=== PATIENT | male | born 1930 | race Caucasian/White ===

== ENCOUNTER 2016-12-06 23:14 | Inpatient (IN) | payer MEDICARE ==
[~2016-12-06] VITALS: Ht 175.3 cm; Wt 98.5 kg
[~2016-12-06 23:14] MED LIST: ALPR0.5T8 PO; AMLO10TA3 PO; ASPI81TA3 PO; ATOR10TA66 PO; CLOP75TA28 PO; GLPZ5T PO; IBUP200C PO; INSU100V7 SUBQ; LOSA100T29 PO; METF1000 PO; SIMV40TA5 PO; TAMS0.4C98 PO; ZYL100 PO
--- NOTE | 2016-12-06 23:28 | ED.REPORT ---
HPI-General Illness Date of Service Dec 06, 2016 ED Provider: Ray Monterroso MD An 85 year old male with a history of hypertension, diabetes and recent TIA is brought to the ED via EMS due to confusion. Per EMS, the pt has been confused with altered mental status for the last six to seven days. This has been accompanied by insomnia and a fever of 101.7 degrees. The pt also admits to decreased mobility over the last few days, but denies headache, nausea, vomiting , chest pain and abdominal pain. He took 30 mg of temazepam tonight, which is a new prescription. The pt was admitted to [facility] on 12/02/2016 for a stroke workup. He was diagnosed with a TIA and discharged on 12/04/2016. Nursing Notes Stated Complaint: CONFUSION/FEVER Nursing Notes Reviewed: Yes Allergies: Coded Allergies: No Known Allergies (Unverified , 12/02/16) Scheduled Allopurinol (Allopurinol) 100 Mg Tablet 100 MG PO QAM Amlodipine (Amlodipine) 10 Mg Tablet 10 MG PO QAM Aspirin Chew (Aspirin Chew) 81 Mg Chew 81 MG PO QAM Atorvastatin Calcium (Atorvastatin Calcium) 10 Mg Tablet 10 MG PO HS Clopidogrel (Clopidogrel) 75 Mg Tablet 75 MG PO DAILY Glipizide (Glipizide) 5 Mg Tablet 5 MG PO QAM Ibuprofen (Ibuprofen) 200 Mg Capsule 600 MG PO QAM Insulin Glargine (Lantus U100 Insulin Vial) 100 Unit/Ml Vial 21 UNIT SUBQ QAM Losartan Potassium (Losartan Potassium) 100 Mg Tablet 100 MG PO QAM Metformin (Glucophage) 1,000 Mg Tablet 1,000 MG PO BIDWM Simvastatin (Simvastatin) 40 Mg Tablet 40 MG PO HS Tamsulosin (Flomax) 0.4 Mg Capsule 0.4 MG PO HS Scheduled PRN Alprazolam (Alprazolam) 0.5 Mg Tablet 0.5 MG PO Q8H PRN PRN For Anxiety General Time Seen by MD: 23:27 Chief Complaint Other (Altered mental status) Hx Obtained From: Patient, EMS Arrived By: Ambulance Sudden in Onset?: No Onset Occurred: 6 days ago Symptom Duration: Since onset Recent Healthcare: Recent doctor visit, Recent hospitalization Similar Sx Previous: No Past Medical History Past Medical History Hypertension Depression Right eye cancer TIA Suspected liver cirrhosis Gout Reports: Diabetes mellitus (on insulin) Past Surgical History Right knee replacement Smoking History Unknown if Ever Smoker Social History Other Social History: Good social support, Ambulatory Status Independent Review of Systems altered mental status Full Review of Systems Constitutional: Reports: Fever Respiratory: Denies: Non-productive cough, Shortness of breath Cardiovascular: Denies: Chest pain GI: Denies: Abdominal pain, Nausea, Vomiting Musculoskeletal: Denies: Back pain, Neck pain Skin: Denies Rash Neurologic: Denies: Headache Psychiatric: Reports: Confusion, Insomnia Complete sys rev & neg: except as marked. Physical Exam Vital Signs Vital Signs Date Time Temp Pulse Resp B/P Pulse Ox O2 Delivery O2 Flow Rate FiO2 12/07/16 02:42 37.4 12/07/16 02:12 73 26 119/51 95 Nasal Cannula 2 12/06/16 23:30 38 81 26 128/41 92 Nasal Cannula 2 Initial VS: Reviewed General/Constitutional: Awake, Alert Head / Eyes: Atraumatic, Normocephalic, PERRL, EOMI ENT: Atraumatic, Airway patent Mouth: Positive: Mucous membranes dry Neck: Atraumatic, Supple, Full range of motion Respiratory / Chest: Atraumatic, Breath sounds NL, Breath sounds = bilat, No respiratory distress Cardiovascular: Heart rate NL Heart Rate / Rhythm: Positive: Irreg irregular rhythm systolic murmur, lower left sternal border Abdomen: Atraumatic, Soft, Non-tender Back: Atraumatic, Full range of motion Upper Extremities Upper Extremity / MS: Full range of motion, Neurologic intact, Vascular intact Lower Extremity / Pelvis / MS: Full range of motion, Neurologic intact, Vascular intact Skin: Warm, Dry erythema and warmth of old IV site on the right antecubital fossa wound on right first toe, appears to be healing well Neurologic: Oriented X3, Speech NL, No motor deficits, No sensory deficits Psychiatric: Affect NL, Mood NL Interpretation & Diagnostics Lab Results Interpretation Result Diagram: 12/06/16 2331 12/06/16 2331 Test 12/06/16 23:31 12/06/16 23:59 12/07/16 01:22 White Blood Count 5.2th/mm3 (3.8-10.1) Red Blood Count 3.43mil/mm3 (4.40-5.80) Hemoglobin 10.8g/dL (13.8-17.2) Hematocrit 31.0% (41.0-50.0) Mean Corpuscular Volume 90.4fL (81-100) Mean Corpuscular Hemoglobin 31.5pg (27.0-35.0) Mean Corpuscular Hemoglobin Concent 34.8% (32.0-37.0) Red Cell Distribution Width 14.9% (12.3-15.4) Platelet Count 122bil/L (150-400) Neutrophils (%) (Auto) 54.2% (40-74) Lymphocytes (%) (Auto) 21.6% (14-46) Monocytes (%) (Auto) 22.8% (4-12) Eosinophils (%) (Auto) 0.4% (0-5) Basophils (%) (Auto) 0.2% (0-3) Sodium Level 128mEq/L (134-144) Potassium Level 3.9mEq/L (3.5-5.2) Chloride Level 90mEq/L (97-108) Carbon Dioxide Level 21mmol/L (18-29) Blood Urea Nitrogen 25mg/dL (8-27) Creatinine 1.26mg/dL (0.76-1.27) Estimat Glomerular Filtration Rate 58mL/min (>59) Glucose Level 149mg/dL (60-99) Calcium Level 9.1mg/dL (8.5-10.1) Magnesium Level 1.7mg/dL (1.6-2.6) Total Bilirubin 1.6mg/dL (0.0-1.2) Aspartate Amino Transf (AST/SGOT) 55U/L (0-50) Alanine Aminotransferase (ALT/SGPT) 45U/L (0-44) Alkaline Phosphatase 320U/L (25-160) Troponin T 0.010ug/L (0.0-0.011) Pro-B-Type Natriuretic Peptide 890.5pg/mL (0-486) Total Protein 7.1g/dL (6.4-8.4) Albumin 3.6g/dL (3.4-5.0) Lipase 54U/L (13-60) Lactic Acid Level 1.4mmol/L (0.4-2.0) Urine Color Callie (YELLOW) Urine Appearance Slightly cloudy Urine pH 5.5 (5.0-8.0) Urine Specific Burkett 1.022 (1.003-1.035) Urine Protein 100mg/dL (NEG,TRACE) Urine Glucose (UA) Negativemg/dL (NEGATIVE) Urine Ketones Negativemg/dL (NEGATIVE) Urine Occult Blood Large (NEGATIVE) Urine Nitrite Negative (NEGATIVE) Urine Bilirubin Small (NEGATIVE) Urine Ictotest Positive (Negative) Urine Urobilinogen 4mg/dL (NORMAL) Urine Leukocyte Esterase Negative (NEGATIVE) Urine RBC 11-50/hpf (0-2) Urine WBC 0-5/hpf (0-5) Urine Epithelial Cells Occasional/hpf (NONE-MOD) Urine Crystals Amorphous urates (NONE Urine Bacteria Few/hpf (NONE-FEW) Urine Hyaline Casts None/lpf (NONE) Urine Granular Casts None seen (NONE SEEN) Urine Waxy Casts None seen (NONE SEEN) Urine Red Blood Cell Casts None seen (NONE SEEN) Urine White Blood Cell Casts None seen (NONE SEEN) Urine Mucus Present (None Seen) Urine Trichomonas None seen (NONE SEEN) Urine Yeast None (NONE SEEN) Urinalysis Comment Fine granular casts Urine Culture Reflexed Not indicated Lab Results Interpretation: Alkaline phosphatase rising compared with 12/04/2016 Bilirubin and transaminases are stable ECG Interpretation ECG Interpretation: normal sinus rhythm with a rate of [address] segment changes prolonged KY interval at 255 PVCs are new when compared with previous dated 12/02/2016 Time: 23:43 Interpreted by: ED physician X-Ray Chest Interpretation Chest Xray Interpretation: no infiltrate no acute process Interpretation / Wet Read by: Wet read ED physician CT Abd / Pelvis Interpretation CONCLUSION: Contracted gallbladder containing small stones. Splenomegaly with some ossification in sterling surface which may be the result of a previous subcapsular hematoma. Diverticulosis without CT evidence of diverticulitis. Enlarged prostate gland. Interpretation / Wet Read by: Interpret - Radiologist Procedures Incision & Drainage Abscess Time: 02:40 Procedure Performed by: ED physician Consent / Setup / Site Prep: Informed consent provided, Consent from patient , Time-out performed, Hand hygiene observed, Stand sterile technique, Standard surgical scrub, Sterile drapes applied Location of Abscess: right anticubital fossa Skin Preparation Agent: Hibiclens - Chlorhexidine Local Anesthesia: Lidocaine w epi 1% Incised Abscess with Scalpel: #11 Pus Drained: Small, Purulent discharge Irrigation: Yes Post-Procedure / Complications: Culture obtained, Dressing applied, No complications, Condition improved, Tolerated procedure well, Patient stable Re-Eval/Medical Decision Med Decision/Clinical Course 85-year-old male presenting with fever and generalized weakness. Recently hospitalized for TIA, apparently had a fever when initially evaluated at that time as well although there is no culture data available and it appears that he was observed in the hospital without antibiotics. Does not appear to have a pneumonia or a urinary tract infection. On imaging today has a contracted gallbladder and gallstones, essentially the same findings from imaging earlier this week. It is noted that there appears to be small subcutaneous abscess with surrounding cellulitis in his right arm, this was opened in the emergency department small amount was drained out cultures were sent and a dressing was applied. He was started on vancomycin and Zosyn here in the emergency department. Has remained hemodynamically stable and will be admitted to the hospitalist service. Blood cultures were obtained prior to starting antibiotics. Source of Hx: Old records Time of Eval: 23:27 Re-Evaluation/Progress Note: Pt informed of the diagnosis and plan for admission during the initial interview. The pt understands and agrees with the plan. All questions are addressed at this time. Time of Eval: 01:30 Patient Status: Condition improved Re-Evaluation/Progress Note: Pt rechecked, who is resting. Need for CT scan is discussed. Time of Eval: 02:40 Patient Status: Condition improved Re-Evaluation/Progress Note: Pt rechecked, who is resting comfortably. I&D is performed without complication. The diagnosis and plan for admission are further discussed. Consultation #1: Referral / Consult Name: Jean-Claude Bustillos MD Consulted With: Hospitalist Call Returned at: 02:12 Library Technical Assistant: Agrees with eval, Agrees with plan, Accepts admit Note: Spoke with Dr. Bustillos, hospitalist, regarding pt's case. Dr. Bustillos agrees with the evaluation, requests empiric antibiotic coverage and agrees to admit the pt. Consultation #2: Referral / Consult Name: Jean-Claude Bustillos MD Consulted With: Hospitalist Call Returned at: 03:05 Library Technical Assistant: Agrees with plan Note: Updated Dr. Bustillos on pt condition and I&D procedure. Counseled Regarding: Diagnosis, Lab results, Need for admission Discharge & Departure Primary Impression: Generalized weakness Additional Impressions: Fever Fever type: unspecified Qualified Code: R50.9 - Fever, unspecified Ascending cholangitis Abscess Cellulitis of right arm Disposition: ADMITTED TO HOSPITAL Discharge Condition All VS Reviewed: Yes Condition: Stable Referrals: Ember Tucker PA-C (PCP) Scribe Attestation Portions of this note were transcribed by Anu Beaver. I, Dr. Monterroso personally performed the history, physical exam and medical decision-making; I reviewed and confirmed the accuracy of the information in the transcribed note. copies to: Ember Tucker PA-C, Donald L MD Dec 06, 2016 23:28 ANU BEAVER Dec 06, 2016 23:35
[2016-12-06 23:30] VITALS: BP 128/41; PULSE 81; RESP 26; O2SAT 92
[2016-12-06] MEDS ORDERED: 0.9% Sodium Chloride 1,000 ML IV ONE (23:35)
[2016-12-06 23:46] LABS: BASOPHILS % (AUTO) 0.2 % (0-3); EOSINOPHILS % (AUTO) 0.4 % (0-5); MONOCYTES % (AUTO) 22.8 % (4-12); Mean Corpuscular Hemoglobin 31.5 pg (27.0-35.0); Mean Corpuscular Volume 90.4 fL (81-100); NEUTROPHILS % (AUTO) 54.2 % (40-74); Platelet Count 122 bil/L (150-400)
[2016-12-07] VITALS (10 sets, daily range): BP systolic 101–148; BP diastolic 51–80; PULSE 63–75; RESP 17–26; O2SAT 92–98
[2016-12-07 00:02] LABS: TROPONIN T 0.01 ug/L (0.0-0.011)
[2016-12-07 00:13] LABS: Magnesium 1.7 mg/dL (1.6-2.6)
[2016-12-07] MEDS ORDERED: Lidocaine 2% 6mL Topical Jelly ONE (00:55)
[2016-12-07 01:55] LABS: APPEARANCE,URINE SLIGHTLY CLOUDY (CLEAR,HAZY); COLOR,URINE AMBER (YELLOW); OCCULT BLOOD,URINE LARGE (NEGATIVE); PH,URINE 5.5 (5.0-8.0)
[2016-12-07 01:56] LABS: UROBILINOGEN,URINE 4 mg/dL (NORMAL)
[2016-12-07 01:57] LABS: ICTOTEST,URINE POSITIVE (Negative)
[2016-12-07] MEDS ORDERED: Piperacillin-Tazo 3.375 Gm Inj 3.375 GM in Dextrose 5% Minibag Plus 50 ML IV ONE (02:15)
[2016-12-07] MEDS ORDERED: Vancomycin Inj 1,000 MG in IV Premix 1 EACH IV ONE (03:00)
[2016-12-07] MEDS ORDERED: Ondansetron 2 mg/mL 2 mL Inj IVPUSH PRN (03:50)
[2016-12-07] MEDS ORDERED: Alum-Mag Hydrox-Simeth 30 mL Suspension PO PRN (03:50)
--- NOTE | 2016-12-07 05:28 | NUR ---
Unable to complete home meds, Advance Directives, SYL screen Pt very tired and sleepy,fallen sleep quickly, he does not want to continue answering questions. Pt unable to remember the meds he took at home including Insulin, he said his has his meds information, (his in hospice per RN report), will contact [facility] pharmacy to get meds information in day time.
--- NOTE | 2016-12-07 05:34 | NUR ---
Admission note Pt admitted to [facility] on stretcher from ER at 0359, alert, orientedx3, some short memory loss, appears very tired, generalized weakness, denies any pain, nausea,SOB,chills,urinary urgency,frequency,trouble voiding. BP 111/71 HR 75 RR 20 T 37.1 SPO2 92% on RA. decreased lung sounds at right side (positional?), some fine crackles at right posterior LL, left lung clear, HR regular, 4/6 systolic murmur at right ICS, Tele: SR 63, 1st AVB per court monitor. Abdomen distended, soft, nontender, BT active, palpable mass about 5cm from right last costal rib down, palpable mass at left upper quadrant under left costal rib. 1+ pitting edema at bilateral LEs. Post I & d at right antecubital area done at ED, redness about 10cm in diameter, some serosanguineous drainage, compression dressing in place. Right 1st toe dry healed wound caused by foot "stumped" per pt, no redness, edema or drainage,no dressing in place, bright redness at bilateral posterior LL, right side > left, no open area, multiple bruises at bilaterally flank and left hip, redness and excoriation at bilateral groins, pt oriented to call light, [place] alarm on. Vanco administered. Night resident assessed pt. Care ongoing
[2016-12-07] MEDS ORDERED: Glucose 40% Oral Gel 15 Gm Tube PO PRN (05:35)
--- NOTE | 2016-12-07 05:37 | PCM.HPMED ---
Subjective Date of Service Dec 07, 2016 Primary Provider: Admitting Physician: Jean-Claude Bustillos MD Primary Care Physician: Ember Tucker PA-C Attending Physician: Jean-Claude Bustillos MD Chief Complaint: Confusion with fever History of Present Illness: 85-year-old male history of diabetes, hypertension, depression, cirrhosis, recent TIA who presents to emergency department via EMS due to confusion that, per family, has continued consistently over the last 6-7 days with new accompanied fever 101.7 measured by EMS. Patient is able to give a history and denies headache, nausea, chest pain, abdominal pain, shortness of breath, cough , dysuria, diarrhea, and vomiting. He denies focal neurological symptoms. He was recently here on 12/02 for TIA. During that admission the patient had a fever and elevated pro-calcitonin. Right upper quadrant ultrasound was done which found a liver mass that was confirmed by CT and suspicious for cancer. Patient was to undergo MRI as outpatient which has not been done. Emergency department the patient was started on vancomycin and Zosyn. A small subcutaneous abscess was found around the site of an old IV and drained with reported pus. Chest x-ray was obtained and was negative and CT of the abdomen was also performed and official read is pending. Review of Systems: Complete review of systems performed; pertinent positives and negatives per history of present illness, all other systems reviewed and are negative Allergies Coded Allergies: No Known Allergies (Unverified , 12/02/16) Home Medications Allopurinol (Allopurinol) 100 Mg Tablet 100 MG PO QAM Amlodipine (Amlodipine) 10 Mg Tablet 10 MG PO QAM Aspirin Chew (Aspirin Chew) 81 Mg Chew 81 MG PO QAM Atorvastatin Calcium (Atorvastatin Calcium) 10 Mg Tablet 10 MG PO HS Clopidogrel (Clopidogrel) 75 Mg Tablet 75 MG PO DAILY Glipizide (Glipizide) 5 Mg Tablet 5 MG PO QAM Ibuprofen (Ibuprofen) 200 Mg Capsule 600 MG PO QAM Insulin Glargine (Lantus U100 Insulin Vial) 100 Unit/Ml Vial 21 UNIT SUBQ QAM Losartan Potassium (Losartan Potassium) 100 Mg Tablet 100 MG PO QAM Metformin (Glucophage) 1,000 Mg Tablet 1,000 MG PO BIDWM Simvastatin (Simvastatin) 40 Mg Tablet 40 MG PO HS Tamsulosin (Flomax) 0.4 Mg Capsule 0.4 MG PO HS Alprazolam (Alprazolam) 0.5 Mg Tablet 0.5 MG PO Q8H PRN PRN For Anxiety PMH Hypertension Depression Right eye cancer TIA Suspected liver cirrhosis Gout Reports: Diabetes mellitus (on insulin) Surgical History Right knee replacement Family History Mother at 73 of [place] Father of pneumonia in his 60's Social History Hx Alcohol Use: No Hx Substance Use: No Hx Tobacco Use: No Smoking Status: Unknown if Ever Smoker Exam Vital Signs Vital Sign - Last Date Time Temp Pulse Resp B/P Pulse Ox O2 Delivery O2 Flow Rate FiO2 12/07/16 02:42 37.4 12/07/16 02:12 73 26 119/51 95 Nasal Cannula 2 Intake and Output 12/06/16 12/06/16 12/07/16 Cumulative From/Thru 15:00 23:00 07:00 12/06/16 23:30 - 12/06/16 23:55 Intake Total 1000 ml 1000 ml Balance 1000 ml 1000 ml Intake IV Total 1000 ml 1000 ml Exam General: sleeping nad arousable; not oriented to place HEENT: PERRLA, EOMI, nonicteric, membranes moist Lymph: No lymphadenopathy Cardio: Regular rate and rhythm 2/6 murmur heard Respiratory: CTA bilaterally, no wheezes, no crackles Abdomen: Soft, positive bowel sounds, nontender, nondistended Extremities: mild edema bilaterally, sensation intact Psych: mildly confused upon awakening but able to be conversant Neuro: CN II through XII grossly intact, sensation intact throughout Skin: No rash Lab and Diagnostics Result Diagram: 12/06/16 2331 12/06/16 2331 Assessment & Plan 85-year-old male with a recent admission for TIA with subsequent finding of a hepatic mass SIRS with acute encephalopathy; present on admission; ongoing -No known cause of infection; CXR negative; CT abdomen pending but no pain; small subc abscess in old IV site possibly source, UA unremarkable; no apparent abscesses -Borderline fever and tachypnea while in ED -Bcx pending -Started on vanc and zosyn; change zosyn to ceftriaxone -Reported that the encephalopathy has been going on for a week but the patient was discharged on the 12/04 -Repeat labs in am -MRSA swab -Consider expanding workup based on CT/US results -Ammonia pending Mild AGMA with mild hyponatremia; present on admission; ongoing -Lactic acid normal; etiology unclear at this time with mild hypochloremia -NS 100ml/hr -Bolused 1L in ED -Recheck am labs Hyperbilirubinemia and elevated LFT's with anemia and thrombocytopenia second to uncharacterized liver mass; present on admission; ongoing -Mass found on previous US and CT -Anemia work-up completed a couple days ago and will not repeat -Pt to follow-up out patient for MRI Type II diabetes; present on admission; ongoing -Last A1c was 7.5 -Home medication: Metformin and unknown insulin -Hold metformin -Lantus 10 units in the evening -Low-dose correctional with no prandial Hypertension; present on admission; ongoing -Continue amlodipine and losartan Hyperlipidemia-continue home statin Gout-continue allopurinol Disposition: Patient is being admitted to inpatient status with expected length of stay greater than two midnights due to to severity of presentation, duration of treatment, and risks of adverse events disposition Pain Evaluation: Adequate Pain Control VTE Prophylaxis: Sub-Q Heparin (Unfractionated) VTE Mechanical Devices: Intermittant Pneumatic CD Resuscitation Status: CPR: Attempt Resuscitation Attending Statement The patient was seen and examined together with Dr. Cooper on 12/07 and I agree with the history, exam and plan as outlined in the note above. Marquise Cooper DO Dec 07, 2016 02:56 Jean-Claude Bustillos MD Dec 07, 2016 19:33
[2016-12-07] MEDS ORDERED: Dextrose 10% 250 ML IV PRN (05:45)
--- NOTE | 2016-12-07 06:25 | DRSVH ---
PROCEDURE: X-RAY CHEST ONE VIEW, PORTABLE ([id number]) INDICATIONS: 85-year-old male with fevers. TECHNIQUE: One view of the chest was acquired. COMPARISON: [facility], CR, XR CHEST 1VW (PORTABLE), 12/02/2016, 20:42. FINDINGS: Surgical changes and devices: None. Lungs and pleura: No pleural effusions or pneumothorax. Bibasilar pleural thickening is unchanged. Lungs are clear. Lung volumes are decreased. Mediastinum: Mediastinal contours appear normal. Heart size is normal. Bones and chest wall: No suspicious bony lesions. Overlying soft tissues appear unremarkable. IMPRESSION: No acute cardiopulmonary disease. Postinflammatory bibasilar pleural thickening as before . Dictated by: Mike Dias M.D. on 12/07/2016 at 6:22 Approved by: Mike Dias M.D. on 12/07/2016 at 6:24
[2016-12-07 06:56] LABS: BASOPHILS % (AUTO) 0.4 % (0-3); EOSINOPHILS % (AUTO) 0.4 % (0-5); MONOCYTES % (AUTO) 23.6 % (4-12); Mean Corpuscular Hemoglobin 31.4 pg (27.0-35.0); Mean Corpuscular Volume 91.3 fL (81-100); NEUTROPHILS % (AUTO) 54.4 % (40-74); Platelet Count 106 bil/L (150-400)
[2016-12-07] MEDS: 0.9% Sodium Chloride 1,000 ML IV SCH ×2 (07:34→15:35)
[2016-12-07] MEDS: Insulin LISPRO 300 Unit/3 mL Inj SUBQ SCH ×4 (08:00→20:06)
--- NOTE | 2016-12-07 08:28 | DRSVH ---
PROCEDURE: CT ABDOMEN AND PELVIS WITH CONTRAST ([id number]) INDICATIONS: 85 year-old male with fever and elevated alkaline phosphatase levels. TECHNIQUE: After the administration of intravenous contrast, 5 mm thick sections acquired from the diaphragm to the symphysis. 5 mm coronal and sagittal reformats were acquired. For radiation dose reduction, the following was used: automated exposure control, adjustment of mA and/or kV according to patient howard mann. COMPARISON: [facility], CT, CT ABD W&WO CON PELVIS W CON, 12/04/2016, 13:12. FINDINGS: Preliminary interpretation rendered by [facility]. Image quality: Excellent. ABDOMEN: Lung bases: Lung bases are clear. Heart size is normal. Solid organs: Liver is normal in size and enhancement, with mild scalloping of the hepatic capsule i ndicating cirrhosis. Gallbladder is contracted as before, containing several calcified gallstones. Biliary system is non dilated. Pancreas enhances normally. There is moderate splenomegaly as before , measuring 16.6 cm in craniocaudal dimensions. There is patchy splenic calcification as before, pres umably from remote subcapsular hematoma. No adrenal nodules. Kidneys demonstrate normal size and enh ancement, without hydronephrosis. On axial image 78, a 1 mm stone is situated at the right ureteroves ical junction. Peritoneum and bowel: Bowel loops demonstrate normal wall thickness and caliber. There is descendin g and sigmoid colon diverticulosis. No free fluid or air. Nodes and vessels: No retroperitoneal or mesenteric adenopathy by size criteria. Aorta and inferior vena cava are normal in size, with mild aortoiliac atherosclerosis. Miscellaneous: There is tiny periumbilical ventral hernia. PELVIS: Genitourinary: Bladder wall thickness is normal. Prostate gland is prominent in overall size. Miscellaneous: Small bilateral fat-containing inguinal hernias are present. No inguinal adenopathy by CT size criteria. Bones: No suspicious bony lesions. There is nonacute L2 vertebral body superior endplate compression fracture as before. There is multilevel lumbar and lower thoracic spine disc degeneration. IMPRESSION: 1. Several calcified gallstones within a contracted gallbladder as before. 2. Cirrhotic liver again noted, as well as moderate splenomegaly from portal hypertension. 3. 1 mm stone at the right ureterovesical junction is again noted, without hydroureteronephrosis. 4. Descending and sigmoid colon diverticulosis, without acute diverticulitis. 5. Small bilateral fat-containing inguinal hernias, as well as tiny periumbilical fat-containing vent ral hernia. 6. Nonacute mild L2 vertebral body superior endplate compression fracture. 7. Prominent prostate gland again noted, consistent with benign prostatic hyperplasia. Concomitant pr ostate neoplasm cannot be excluded by CT imaging appearances. Dictated by: Mike Dias M.D. on 12/07/2016 at 8:15 Approved by: Mike Dias M.D. on 12/07/2016 at 8:26
[2016-12-07] MEDS: cefTRIAXone Inj 2,000 MG in Dextrose 5% Minibag Plus 50 ML IV SCH (09:05)
[2016-12-07] MEDS: Heparin 5,000 Unit/mL Inj SUBQ SCH ×2 (09:05→16:30)
[2016-12-07] MEDS ORDERED: RES15 PO (10:11)
[2016-12-07] MEDS ORDERED: INSU300I SQ (10:23)
--- NOTE | 2016-12-07 11:04 | NUR ---
Social Work-initial assessment/multidisciplinary rounds: Data:See initial assessment. Pt is a 85 y/o male who was admitted on 12/07/16 for fever per H&P. Pt's insurance is [facility] and PCP is LORIE Bah. EMR reviewed. Pt is a readmission just discharging home no needs.SW met with pt at bedside to discuss discharge planning, SW role explained. Pt is alert and oriented x3. Pt resides at home with his in a 2nd floor apartment with elevator access where he remains independent with ADLS. Pt's is currently on Hospice and pt's daughter Kamille [phone] is staying with at home. Pt drives and does not use any DME. Pt has fww at home. Pt has no HH or SNF history. Pt has no group home care insurance or [place] benefits. SW discussed DPOA/ advanced directive, pt confirms he has completed this, SW encouraged a copy to be brought in. SW provided pt with discharge planning checklist and encouraged pt to call with any questions, phone number provided on white board in room. No concerns noted around pt's capacity for self care from RN or MD. Pt's daughter to provide transport home. SW to follow for any HH needs, no MD orders at this time. SW will continue to follow. Assessment:Pt who is independent at baseline. Plan:Pt to discharge home when medically stable via POV. SW to follow for any HH needs, no MD orders at this time. SW will continue to follow.. YOSELYN De La Garza Addendum: 12/07/16 at 1105 by FARIDA SETHI Amended: Links added.
--- NOTE | 2016-12-07 15:20 | NUR ---
Hyda Scan: Patient went down for his Hyda scan at 1520. Patient has been NPO since yesterday. His blood sugars have been WNL 142 and 132. Addendum: 12/07/16 at 1844 by ESTELA LAZARO RN Patient came back from his Hida Scan at 1810. He was given his dinner , his blood sugar was 120.
--- NOTE | 2016-12-07 18:56 | NUR ---
Blood culture: Patients blood culture grew positive Cocci/Strep x1 bottle. was Notified , patient continues to receive IV ABT around the clock. Addendum: 12/07/16 at 2109 by ESTELA LAZARO RN Lab Called and reported that patients second B/C bottle grew Cocci /strep.
--- NOTE | 2016-12-07 19:23 | DRSVH ---
PROCEDURE: NM HIDA SCAN WITHOUT CCK RADIOPHARMACEUTICAL: 5.4 mCi Tc-99m mebrofenin IV. INDICATIONS: 85 year-old male with elevated liver function tests. TECHNIQUE: Following intravenous administration of Tc-99m mebrofenin, sequential anterior abdominal images were obtained through at least 60 minutes. 2.0 mg intravenous morphine was administered at the one hour ma rk. COMPARISON: [facility], CT, CT ABD PELVIS W CON, 12/07/2016, 1:24. FINDINGS: There is normal tracer uptake and excretion by the liver. There is normal visualization o f intrahepatic ducts, common bile duct. There is also uptake of radiotracer within a contracted gall bladder lumen before and after intravenous morphine administration. There is normal tracer excretion into the duodenum. IMPRESSION: No scintigraphic evidence for acute cholecystitis or biliary ductal obstruction. Dictated by: Mike Dias M.D. on 12/07/2016 at 19:17 Approved by: Mike Dias M.D. on 12/07/2016 at 19:21
[2016-12-07] MEDS: Insulin GLARgine 100 Unit/mL Syringe SUBQ SCH (20:06)
[2016-12-08] VITALS (7 sets, daily range): BP systolic 128–188; BP diastolic 63–95; PULSE 61–72; RESP 18; O2SAT 93–98
[2016-12-08] MEDS: Heparin 5,000 Unit/mL Inj SUBQ SCH ×4 (00:16→23:51)
[2016-12-08] MEDS: 0.9% Sodium Chloride 1,000 ML IV SCH (00:16)
--- NOTE | 2016-12-08 05:21 | NUR ---
NOC Activity Pt has been alert and oriented. Denies chest pain, sob, n/v or abd discomfort. VSS and has been afebrile overnight. Telemetry runs Sinus Rhythm 70's with 1 deg heart block. Intentional hourly rounding done and pt has slept most of the night.
[2016-12-08 06:29] LABS: Magnesium 1.9 mg/dL (1.6-2.6); Phosphorus 2.7 mg/dL (2.5-4.9)
[2016-12-08 06:33] LABS: EOSINOPHILS % (AUTO) 1.2 % (0-5); MONOCYTES % (AUTO) 20.5 % (4-12); Mean Corpuscular Hemoglobin 31.3 pg (27.0-35.0); Platelet Count 116 bil/L (150-400)
[2016-12-08] MEDS: cefTRIAXone Inj 2,000 MG in Dextrose 5% Minibag Plus 50 ML IV SCH (09:10)
[2016-12-08] MEDS: Insulin LISPRO 300 Unit/3 mL Inj SUBQ SCH ×4 (09:16→20:41)
--- NOTE | 2016-12-08 10:25 | PCM.PNMED ---
Subjective Date of Service Dec 08, 2016 Subjective pt remained afebrile, but still has some tenderness on Rt arm. denied anyother complaints, US ordered to assess abscess. awaits surgical eval. HIDA scan was unremarkable. Exam Vital Signs Vital Sign - Last Date Time Temp Pulse Resp B/P Pulse Ox O2 Delivery O2 Flow Rate FiO2 12/08/16 08:29 36.6 68 18 155/83 96 Room Air 12/07/16 12:11 2.00 Intake and Output 12/07/16 12/07/16 12/08/16 Cumulative From/Thru 15:00 23:00 07:00 12/06/16 23:30 - 12/08/16 06:12 Intake Total 1053 ml 1349 ml 3402 ml Output Total 400 ml 900 ml 1300 ml Balance 653 ml 449 ml 2102 ml Intake Oral 0 ml 345 ml 345 ml IV Total 1053 ml 1004 ml 3057 ml Output Urine Total 400 ml 900 ml 1300 ml Exam NAD, comfortably laying down on the bed no JVD, MMM, no LAD RRR, nl s1, s2 no mrg CTAB, no w,c S,ND,NT,normoactive BS+ R ant cubital fossa: hard, tender indurated mass, minimal surrounding erythema, mildly warm, LE: warm, pulses 2/2, no edema IVs and Medications Medications Reviewed: Medications were reviewed in detail Lab and Diagnostics Result Diagram: 12/08/1652712/08/16527 Assessment & Plan 85-year-old male with a recent admission for TIA with subsequent finding of a hepatic mass acute, active Rt arm, abscess in anterior cubital fossa, believed to be from previous IV infiltrated, abscess drained for culture in ED. -given probable remaining abscess, ordered US today, -appreciate surgical consult for possible I&D Beta strep group G bacteremia, in BCX, 2/, source likely above, Started on vanc and zosyn; change zosyn to ceftriaxone, -continue cfx as pt seems to respond well. PCT trending down. -will ask ID input tomorrow for oral regimen on d/c. -awaits final BCX mild hyponatremia-Lactic acid normal; etiology unclear at this time with mild hypochloremia -Na level remained stable, no neurologic findings, -s/p -Bolused 1L in ED, NS 100ml/hr, stop fluid today -Recheck am labs chronic, stable sepsis, +SIRS, Strep bacteremia, source likely Rt arm abscess, unlikely GI source given negative HIDA scan -sepsis resolved with abx, ivf, BP remained stable, pt remained afebrile. Hyperbilirubinemia and elevated LFT's with anemia and thrombocytopenia second to uncharacterized liver mass; present on admission; ongoing, Mass found on previous US and CT. HIDA scan revealed normal GB. -Anemia work-up completed a couple days ago and will not repeat -Pt to follow-up out patient for MRI with liver protocol. Type II diabetes; present on admission; ongoing -Last A1c was 7.5 -Home medication: Metformin and unknown insulin -Hold metformin -Lantus 10 units in the evening -Low-dose correctional with no prandial Hypertension; present on admission; ongoing -Continue amlodipine and losartan Hyperlipidemia-continue home statin Gout-continue allopurinol Disposition: likely 2-3more days home VTE Prophylaxis: Sub-Q Heparin (Unfractionated) VTE Mechanical Devices: Intermittant Pneumatic CD Resuscitation Status: CPR: Attempt Resuscitation Time spent 35min Dionne James MD Dec 08, 2016 10:25
--- NOTE | 2016-12-08 10:35 | PCM.CONSUR ---
Subjective Date of Service: Dec 08, 2016 History of Present Illness Anthony Kahn is an 85 year old male history of T2DM, cirrhosis, hypertension and recent TIA who presented with fever to 101.7, confusion and 6-7 days of general malaise. He was found to have a right arm antecubital fossa abscess with cellulitis that was drained in the ED with some pus expressed. He also had blood cultures sent that were positive for group B streptococcus. Wound culture was sent and is still pending. General Surgery was consulted to ensure the abscess was adequately drained. Will reports that his right arm had been sore and red for about a week and he had been rubbing vaseline on it. He feels that it is much improved after drainage. He denies pain at the site or any recent drainage. He has a normal WBC, has been afebrile and is being treated with Vancomycin and Zosyn for his bacteremia. Reason for Consultation Right antecubital fossa abscess and cellulitis Allergy Allergies: Coded Allergies: No Known Allergies (Unverified , 12/02/16) Medications Allopurinol (Allopurinol) 100 Mg Tablet 100 MG PO QAM (Reported) Last Taken: Unknown Dose on Unknown Date & Time Amlodipine (Amlodipine) 10 Mg Tablet 10 MG PO QAM (Reported) Last Taken: Unknown Dose on Unknown Date & Time Aspirin Chew (Aspirin Chew) 81 Mg Chew 81 MG PO QAM (Reported) Last Taken: Unknown Dose on Unknown Date & Time Clopidogrel (Clopidogrel) 75 Mg Tablet 75 MG PO DAILY Prescribed by: DONNIE PUENTE MD Last Taken: Unknown Dose on Unknown Date & Time Glipizide (Glipizide) 5 Mg Tablet 10 MG PO BIDAC (Reported) Last Taken: Unknown Dose on Unknown Date & Time Ibuprofen (Ibuprofen) 200 Mg Capsule 600 MG PO QAM (Reported) Last Taken: Unknown Dose on Unknown Date & Time Insulin Glargine, Hum.rec.anlog (Toujeo Solostar) 300 Unit/Ml (1.5 Ml) Insuln.pen 15 UNIT SQ DAILY (Reported) Last Taken: Unknown Dose on Unknown Date & Time Losartan Potassium ( Losartan Potassium) 100 Mg Tablet 100 MG PO QAM (Reported) Last Taken: Unknown Dose on Unknown Date & Time Metformin (Glucophage) 1, 000 Mg Tablet 1,000 MG PO BIDWM (Reported) Last Taken: Unknown Dose on Unknown Date & Time Simvastatin (Simvastatin) 40 Mg Tablet 40 MG PO HS (Reported) Last Taken: Unknown Dose on Unknown Date & Time Tamsulosin (Flomax) 0.4 Mg Capsule 0.8 MG PO HS (Reported) Last Taken: Unknown Dose on Unknown Date & Time Temazepam (Temazepam) 15 Mg Capsule 15 MG PO HS PRN PRN For Insomnia (Reported) Last Taken: Unknown Dose on Unknown Date & Time Discontinued Medications Alprazolam (Alprazolam) 0.5 Mg Tablet 0.5 MG PO Q8H PRN PRN For Anxiety ( Reported) Atorvastatin Calcium (Atorvastatin Calcium) 10 Mg Tablet 10 MG PO HS Prescribed by: DONNIE PUENTE MD Insulin Glargine (Lantus U100 Insulin Vial) 100 Unit/Ml Vial 21 UNIT SUBQ QAM ( Reported) Last Taken: Unknown Dose on Unknown Date & Time Past Surgical History Surgeries: Yes (RT KNEE,) Patient/Family Past Surgical: Positive for:: Accept Blood Products?, Denies:: Anesthesia Reactions, Blood Transfusions Social History Hx Alcohol Use: No Hx Substance Use: No Hx Tobacco Use: No PMH HEENT History History of ENT Problems?: Yes HEENT History: Positive for:: Cataracts Denies:: Dysphagia Other HEENT Pertinent History: RIGHT EYE CANCER,BUT NO PROBLEM TO SEE PER PT Cardiovascular History History of Heart Problems?: Yes Cardiovascular History: Positive for:: Edema Hypertension Denies:: Cardiac Surgery Chest Pain Congestive Heart Failure Heart Murmur Irregular Heartbeat Pacemaker Thrombophlebitis Respiratory History of Respiratory Problem: No Respiratory History: Denies:: Tuberculosis Neurological History Hx Neurologic Problems?: Yes Neurological History: Positive for:: 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 042016 ) Gastrointestinal History HX of GI Problems?: No Gastrointestinal History: Denies:: Hepatitis Genitourinary History Hx of Gu Problems?: No Female/Male History Reproductive History Male: Denies: Prostate Problems Scrotal Mass Musculoskeletal History Hx Musculoskeletal Problems?: Yes Musculoskeletal History: Positive for:: Back Injury Joint Replacement (RT KNEE) Psycho Social History Hx of Psycho/Social Problems?: Yes Psycho Social History: Positive for:: Hx Depression Other History Hx Any Other Health Problems?: Yes Other History: Positive for:: Cancer (RIGHT EYE CANCER,BUT NO PROBLEM TO SEE PER PT) Hospitalization (TIA) Denies:: Thyroid Disease Diabetes: Yes (ON INSULIN AND METAFOMIN)Bedside Blood Glucose: 159 Social History Hx Alcohol Use: NoHx Substance Use: NoHx Tobacco Use: No Smoking Status: Unknown if Ever Smoker Objective Exam Vital Signs & I/O Vital Sign- Last 8 Hours Date Time Temp Pulse Resp B/P Pulse Ox O2 Delivery O2 Flow Rate FiO2 12/08/16 08:29 36.6 68 18 155/83 96 Room Air 12/08/16 07:55 61 12/08/16 06:06 72 12/08/16 04:24 36.7 71 18 128/68 93 Room Air Intake and Output- Last 8 Hour 12/08/16 Cumulative From/Thru 07:00 12/06/16 23:30 - 12/08/16 06:12 Intake Total 1349 ml 3402 ml Output Total 900 ml 1300 ml Balance 449 ml 2102 ml Intake Oral 345 ml 345 ml IV Total 1004 ml 3057 ml Output Urine Total 900 ml 1300 ml Lab & Micro Results Laboratory Tests Test 12/08/16 05:28 White Blood Count 4.2th/mm3 (3.8-10.1) Red Blood Count 3.26mil/mm3 (4.40-5.80) Hemoglobin 10.2g/dL (13.8-17.2) Hematocrit 30.0% (41.0-50.0) Mean Corpuscular Volume 92.0fL (81-100) Mean Corpuscular Hemoglobin 31.3pg (27.0-35.0) Mean Corpuscular Hemoglobin Concent 34.0% (32.0-37.0) Red Cell Distribution Width 15.4% (12.3-15.4) Platelet Count 116bil/L (150-400) Neutrophils (%) (Auto) 45.0% (40-74) Lymphocytes (%) (Auto) 30.6% (14-46) Monocytes (%) (Auto) 20.5% (4-12) Eosinophils (%) (Auto) 1.2% (0-5) Basophils (%) (Auto) 1.0% (0-3) Sodium Level 131mEq/L (134-144) Potassium Level 4.2mEq/L (3.5-5.2) Chloride Level 97mEq/L (97-108) Carbon Dioxide Level 18mmol/L (18-29) Blood Urea Nitrogen 22mg/dL (8-27) Creatinine 1.03mg/dL (0.76-1.27) Estimat Glomerular Filtration Rate 73mL/min (>59) Glucose Level 159mg/dL (60-99) Calcium Level 8.3mg/dL (8.5-10.1) Phosphorus Level 2.7mg/dL (2.5-4.9) Magnesium Level 1.9mg/dL (1.6-2.6) Total Bilirubin 1.1mg/dL (0.0-1.2) Aspartate Amino Transf (AST/SGOT) 50U/L (0-50) Alanine Aminotransferase (ALT/SGPT) 39U/L (0-44) Alkaline Phosphatase 322U/L (25-160) Total Protein 6.4g/dL (6.4-8.4) Albumin 3.3g/dL (3.4-5.0) Procalcitonin 0.66ng/mL (0.00-0.08) Microbiology 12/07/16 Blood Culture - Preliminary, Resulted Beta Streptococcus Group G 12/07/16 Gram Stain - Final, Resulted 12/07/16 Culture & Sensitivity - Preliminary, Resulted 12/07/16 Anaerobic Culture, Resulted Pending Result Diagram: 12/08/16 0512/08/16527 Review of Systems: Constitutional: Negative, except as otherwise mentioned in the history above. Ophthalmologic: Negative, except as otherwise mentioned in the history above. Cardiovascular: Negative, except as otherwise mentioned in the history above. Respiratory: Negative, except as otherwise mentioned in the history above. Gastrointestinal: Negative, except as otherwise mentioned in the history above. Genitourinary: Negative, except as otherwise mentioned in the history above. Musculoskeletal: Negative, except as otherwise mentioned in the history above. Neurological: Negative, except as otherwise mentioned in the history above. Psychiatric: Negative, except as otherwise mentioned in the history above. Hematologic/Lymphatic: Negative, except as otherwise mentioned in the history above. Allergic/Immunologic: Negative, except as otherwise mentioned in the history above. H&P Surgical Exam Exam General: Alert, Oriented X3, Cooperative, No Acute Distress HEENT: PERRLA, EOMI Neck: Within normal limits & unremarkable Respiratory: Clear to Auscultation Cardiac: Regular Rate/Rhythm Abdomen: Soft, No tenderness Additional Information Right antecubital fossa with raised area of prior abscess with some associated cellulitis and indurated tissue but no fluctuance appreciated. Non tender to palpation. Assessment & Plan Assessment 85 year old male with appropriately drained right antecubital fossa abscess with cellulitis being treated with antibiotics. VTE Prophylaxis: Sub-Q Heparin (Unfractionated) VTE Mechanical Devices: Intermittant Pneumatic CD Plan: Would not recommend additional surgical intervention at this time. We would recommend continued treatment of the cellulitis and any remaining small areas of infection with antibiotics. Follow up wound culture to direct antibiotic treatment and course per medical team. Thank you for this consultation. General Surgery will sign off at this time. Please contact our team if the cellulitis worsens, fevers return or he is not responding to antibiotic therapy. Resuscitation Status: CPR: Attempt Resuscitation Cailin,Gabe Covarrubias MD Dec 08, 2016 10:35
--- NOTE | 2016-12-08 16:50 | NUR ---
Right arm redness: The antecubital area of patients right arm continues to be red. Surgeon evaluated the area today and per MD he has decided not to do surgical intervention on the area. Patient continues to recieve IV ABT as ordered by the MD. Applied bandage to the area and patient removed the bandage. Will reapply bandage to area and encourage patient to leave it in place to prevent worsening of the infected area.
[2016-12-08] MEDS: Insulin GLARgine 100 Unit/mL Syringe SUBQ SCH (20:44)
[2016-12-09 01:59] VITALS: BP 167/82; PULSE 58
[2016-12-09 05:47] VITALS: BP 167/79; PULSE 80; RESP 18; O2SAT 98
--- NOTE | 2016-12-09 06:29 | NUR ---
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 Was sitting up in the chair at the beginning of the shift. Has not had a lot of sleep at pt is up frequently to void. Afebrile through the night.
[2016-12-09] MEDS: cefTRIAXone Inj 2,000 MG in Dextrose 5% Minibag Plus 50 ML IV SCH (07:48)
[2016-12-09] MEDS: Insulin LISPRO 300 Unit/3 mL Inj SUBQ SCH ×4 (07:48→20:46)
[2016-12-09] MEDS: Heparin 5,000 Unit/mL Inj SUBQ SCH ×2 (07:48→15:32)
--- NOTE | 2016-12-09 08:17 | DRSVH ---
PROCEDURE: US EXTREMITY SONOGRAM LIMITED ([id number]) INDICATIONS: Rt ant cubital fossa abnormality evaluate for abscess. Palpable area with redness TECHNIQUE: Real-time scanning was performed of the right antecubital fossa, with image documentation . COMPARISON: None. FINDINGS: An area of palpable abnormality there is a 4.5 x 2.5 x 4.6 mm area of decreased attenuation . This is relatively well-circumscribed with internal echoes and the appearance appears to muscle or edematous muscle. No fluid collection or peripheral vascularity to indicate abscess is seen. IMPRESSION: Question of abnormal focus within muscle of the right antecubital fossa versus less likel y evolving hematoma. The appearance is not thought to be abscess. Dictated by: Luis Messer M.D. on 12/09/2016 at 8:13 Approved by: Luis Messer M.D. on 12/09/2016 at 8:15
[2016-12-09 09:58] VITALS: BP 134/83; PULSE 77; RESP 18; O2SAT 97
--- NOTE | 2016-12-09 13:31 | PCM.PNMED ---
Subjective Date of Service Dec 09, 2016 Subjective pt remained afebrile, MS is at baseline, in good shape, feels well, awaits ID eval, US suggested more muscular lesion surgery didn't recommend any surgical debridement. Exam Vital Signs Vital Sign - Last Date Time Temp Pulse Resp B/P Pulse Ox O2 Delivery O2 Flow Rate FiO2 12/09/16 09:58 36.8 77 18 134/83 97 Room Air 12/07/16 12:11 2.00 Intake and Output 12/08/16 12/08/16 12/09/16 Cumulative From/Thru 15:00 23:00 07:00 12/06/16 23:30 - 12/09/16 06:16 Intake Total 2468 ml 730 ml 6600 ml Output Total 800 ml 2275 ml 4375 ml Balance 1668 ml -1545 ml 2225 ml Intake Oral 1518 ml 405 ml 2268 ml IV Total 950 ml 325 ml 4332 ml Output Urine Total 800 ml 2275 ml 4375 ml # Voids 3 3 # Bowel Movements 1 1 2 Exam NAD, comfortably laying down on the bed no JVD, MMM, no LAD RRR, nl s1, s2 no mrg CTAB, no w,c S,ND,NT,normoactive BS+ R ant cubital fossa: hard, tender indurated mass, minimal surrounding erythema, mildly warm, LE: warm, pulses 2/2, no edema IVs and Medications Medications Reviewed: Medications were reviewed in detail Lab and Diagnostics Result Diagram: 12/08/1652712/08/16527 Assessment & Plan 85-year-old male with a recent admission for TIA with subsequent finding of a hepatic mass acute, active Rt arm, abscess in anterior cubital fossa, believed to be from previous IV infiltrated, abscess drained for culture in ED. US suggested more intramuscular lesion. no surgical intervention recommended per surgery team. wound culture grew MSSA, which is different from BCX. -appreciate ID input strep Dysgalactiae in BCX, 2, diff organism from wound, unclear source, pt was started on vanc and zosyn; change zosyn to ceftriaxone, -continue cfx as pt seems to respond well. PCT trending down. -appreciate ID input, follow up given discrepancy of organisms in cultures, mild hyponatremia-Lactic acid normal; etiology unclear at this time with mild hypochloremia -Na level remained stable, no neurologic findings, -s/p -Bolused 1L in ED, NS 100ml/hr, stop fluid today -Recheck am labs chronic, stable sepsis, +SIRS, Strep bacteremia, source likely Rt arm abscess, unlikely GI source given negative HIDA scan -sepsis resolved with abx, ivf, BP remained stable, pt remained afebrile. Hyperbilirubinemia and elevated LFT's with anemia and thrombocytopenia second to uncharacterized liver mass; present on admission; ongoing, Mass found on previous US and CT. HIDA scan revealed normal GB. -Anemia work-up completed a couple days ago and will not repeat -Pt to follow-up out patient for MRI with liver protocol. Type II diabetes; present on admission; ongoing -Last A1c was 7.5 -Home medication: Metformin and unknown insulin -Hold metformin -Lantus 10 units in the evening -Low-dose correctional with no prandial Hypertension; present on admission; ongoing -Continue amlodipine and losartan Hyperlipidemia-continue home statin Gout-continue allopurinol Disposition: today or tomorrow, home VTE Prophylaxis: Sub-Q Heparin (Unfractionated) VTE Mechanical Devices: Intermittant Pneumatic CD Resuscitation Status: CPR: Attempt Resuscitation Time spent 35min Dionne James MD Dec 09, 2016 13:31
--- NOTE | 2016-12-09 15:21 | NUR ---
Mentation Alert and oriented X3. Calm and cooperative mood. Stable Vital signs. New orders for anti hypertensive given as ordered for elevated blood pressure this morning. Stable blood sugars and insulin per sliding scale. Denies any pain or discomfort. Right arm antecubital area red with no active drainage. Per surgery no surgical intervention, Review surgery note. Patient is continue to receive IV ABO as ordered with no adverse effects. Offered dressing to right antecubital area and patient refused. No sign and symptoms of infection noted to right antecubital area, continue to monitor. New orders for infectious disease MD. Dr. Daniels saw this patient this noon. Physical therapy after lunch, review PT notes. Call light with in reach with appropriate use. Continue to monitor.
[2016-12-09 16:14] VITALS: BP 144/79; PULSE 76; RESP 18; O2SAT 96
[2016-12-09 20:32] VITALS: BP 154/77; PULSE 75; RESP 19; O2SAT 97
[2016-12-09] MEDS: Insulin GLARgine 100 Unit/mL Syringe SUBQ SCH (20:53)
[2016-12-09 23:46] VITALS: BP 146/71; PULSE 70; RESP 18; O2SAT 95
[2016-12-10] VITALS (7 sets, daily range): BP systolic 106–162; BP diastolic 64–95; PULSE 69–85; RESP 14–20; O2SAT 94–97
[2016-12-10] MEDS: Heparin 5,000 Unit/mL Inj SUBQ SCH ×3 (00:30→16:41)
--- NOTE | 2016-12-10 05:36 | NUR ---
Mentation: At the beginning of the shift, pt stated feeling "much better" today. Has been ambulating in the room with the FWW independently; steady on feet. Received PRN sleep meds at per pt request. Pt woke disoriented, coming out into the farr looking for the bathroom and unsteady. After being awake for a few minutes, thoughts clear. Bed alarm activated for pt safety. Addendum: 12/10/16 at 0557 by ASAF VELASQUEZ RN This morning pt was wondering was medication was administered last evening because he "does not want to ever take that again".
--- NOTE | 2016-12-10 06:53 | CONS ---
[address] [address] CONSULTATION REPORT PATIENT: EVELYN SUTHERLAND : 1930 MR#: [id number] ADMIT: 12/07/2016 JOB ID: [id number] DATE OF SERVICE: 12/09/2016 REASON FOR CONSULT: Group G strep bacteremia with right antecubital MSSA abscess. I thank Dr. James for this timely consult. HISTORY OF PRESENT ILLNESS: This patient is an 85-year-old gentleman with multiple medical problems, including diabetes, gout, and a history of non-A non-B hepatitis according to he and his daughter. He was admitted to this facility on December 02 and at that time had developed the abrupt onset of slurred speech, facial droop, and confusion. During his admission on December 02 which lasted only a couple days it was found that he had significant fever to 38.1 in association with grossly elevated procalcitonin to 3.16. None of this seems to have been explained as we had no blood cultures or workup during what was thought to be a TIA workup, and he was returned home just a couple days later with the diagnosis of TIA with resolution and no explanation for the fever nor leukocytosis. An echo was done during that admission as part of the TIA workup, but was of generally poor quality in terms of its definition of the valves. The patient was discharged home on December 04 only to be readmitted two days later late on the through the emergency department. He was readmitted because his daughter found him with fever, chills, confusion, hallucinations, and just generally "being out of it." Because of this, she again called 911 and he came back to the hospital. At the time he was readmitted was noted on Friday night that he had swelling, tenderness, and pain in his right antecubital fossa at the site of a peripheral IV had been placed back on December 02. This was cultured and grew MSSA blood cultures, however, grew group G Streptococcus. Because of these surprising findings an ID consult has been requested. This afternoon the patient says he feels considerably better. He no longer has fevers, chills, and he denies confusion. He has no significant headache, cough, or shortness of breath. No chest pain per se nor abdominal pain. He does have pain in his right antecubital fossa where the abscess is located. PAST MEDICAL HISTORY: 1. Hypertension. 2. Hyperlipidemia. 3. Gout. 4. Diabetes. 5. Cirrhosis as was discovered by CT scan of the abdomen during his last admission. 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 He reports that he and his used to engage in a fairly heavy and consistent social drinking. His daughter confirms that he drank a considerably and has slowed down in his later years somewhat. He was never a cigarette smoker and has never lived overseas nor served in the . FAMILY HISTORY: Positive for an uncle with tuberculosis who he did not live with, but did encounter from time to time. REVIEW OF SYSTEM: The patient currently has no headache. Denies any ongoing neurologic deficits. He did have some eye pain on the right side earlier in his admission. He denies stiff neck. Denies trouble speaking or thinking. He says he is occasionally short of breath with exertion, but not much. No significant cough. No chest pain, nausea, vomiting, diarrhea, or dysuria. He denies swelling of the abdomen that might be consistent with ascites. He has had some peripheral edema, but is improving. No pain or burning with urination. No problems with the joints. He has pain in his right antecubital fossa due to his abscess. Remainder of the review of systems negative. PHYSICAL EXAMINATION: Reveals an afebrile gentleman, temperature 36.8, pulse 77, respiratory rate 18, blood pressure 134/83. He is saturating well on room air. He is in no acute distress. He is awake and alert, seems fairly comfortable. No evidence for head trauma. No temporal wasting. Conjunctivae and sclerae are normal. Pupils are equal. Extraocular movements are intact. Oral cavity has some missing teeth, but no pharyngitis or thrush. Neck is reasonably supple. Lungs fairly clear posteriorly. Cardiac tones with a harsh murmur 2 to 3/6 heard best along the left lower sternal border, but radiates everywhere. Regular rate and rhythm noted. Abdomen slightly distended, but no organomegaly or ascites is appreciated. It is a difficult exam however because of the distention. No Lopez catheter is present. The patient can walk. He has good strength in his lower extremities. No significant skin rashes noted except in the right antecubital fossa where there was an inflammatory about 2 cm in diameter area of inflammation at the site of a prior peripheral IV. No synovitis is noted. His cranial nerves are intact and normal at this point. LABORATORIES: Include white count consistently normal through most of his November admissions now 4200, platelets though are consistently low 116 consistent with our probable diagnosis of cirrhosis. His creatinine is 1.03. Liver function tests normal except for an alk phos of 322. Albumin 3.3. Procalcitonin was as high as 3.16 during his last admission. This admission it has been 0.9 and now 0.66. Urinalysis 0-5 white cells. Hep B and hep C serologies are actually negative. Of greatest interest is his blood cultures. He had no blood cultures during his December 02 admission. On this admission we have 2/4 bottles growing Strep agalactiae subspecies equis. Note that this is exquisitely sensitive to penicillin with an KAROLINA less than 0.06. He also has Staph aureus growing from the right antecubital abscess and this is a typical MSSA, which is in fact sensitive to clinda and all other standard drugs. IMAGING: Extensive between his two hospital stays. He had a clear chest x-ray back on December 02. He also had a brain MRI on December 03, which showed no acute abnormalities. Subsequently because of his high alk phos. He had an abdominal ultrasound which showed a suspicious mass in the right posterior lobe of the liver as well as ultrasound possibly consistent with cirrhosis. The posterior mass is considered to possibly represent a malignancy. A CT scan was then done of the abdomen, which showed the right hepatic low-density focus, which could be malignant. Liver MRI was recommended, but has not been done. Additionally the CT prepared to show cirrhosis with an enlarged spleen probably due to portal hypertension. On this admission, we have another chest x-ray which is also clear as well as an abdominal CT, which again shows the cirrhotic liver, splenomegaly, and portal hypertension. No diverticulitis is seen. A liver and spleen scan was done, which did not show any evidence of cholecystitis. IMPRESSION: This is a fascinating case of a gentleman with underlying diabetes and apparently cirrhosis. He has a cirrhotic appearing liver on ultrasound and CT with a big spleen and low platelets, which would all but confirm a diagnosis of cirrhosis. He and his daughter are under the impression this is non-A, non-B, or what we now alcohol hepatitis C related as he was diagnosed with that in 1989, but interestingly his serology is negative now essentially negating that as a possibility. More likely, I suspect he has alcoholic cirrhosis with a history of robust long-term social drinking, which his daughter implies was perhaps more than that. These two admissions likely represent one continuous problem. He was admitted for transient ischemic attacks one week ago today and discharged after about a 36 hour workup. During that admission, he did have fever as well as an unexplained very elevated procalcitonin. No cultures of any kind were done. During this admission the patient has more fever and confusion and is found to have group G strep in his blood. This certainly raises the possibility that the patient had or has group G strep endocarditis as an underlying cause of his transient ischemic attacks, fever, elevated procalcitonin, and other neurologic problems. It is also notable that he now has an iatrogenic complication in that he has developed a right antecubital fossa abscess due to MSSA, but this is a completely different organism than the one found in his blood, and I do not think these are related phenomena. Because of his cirrhosis, the tanning solution maker will decline to do a transesophageal echo without upper endoscopy. The patient will require upper endoscopy in any event to assess his portal hypertension and possible varices and so it may serve as a useful evaluation to see if he has varices both to help further characterize his cirrhosis as well as prepare him for MATTI. RECOMMENDATIONS: 1. Blood cultures x2 should be done today, and we should continue those until we have negative blood cultures as he may have endocarditis. 2. I would arrange for upper endoscopy as soon as possible so that we can move forward with a MATTI. 3. Antibiotics can continue with ceftriaxone for now as it will cover both the MSSA and more importantly the group G strep in the blood, but we may eventually want to switch to penicillin depending on how long we decide to treat the patient for. Thank you very much for this absolutely fascinating consult. We had discussed earlier whether the patient could be a candidate for discharge today and it is now clear of course that he is not, and we will continue to follow this complex patient with you. KAL
--- NOTE | 2016-12-10 09:44 | PCM.PNMED ---
Subjective Date of Service Dec 10, 2016 Subjective pt remained afebrile, remained alert at baseline MSdarrell, pt confronted staffs multiple times, demand discharge, refused w/u discussed in detail with Adriano, Daughter over the phone and the patient regarding the plan, pt agreed to proceed with possible EGD and MATTI Exam Vital Signs Vital Sign - Last Date Time Temp Pulse Resp B/P Pulse Ox O2 Delivery O2 Flow Rate FiO2 12/10/16 08:08 36.4 85 20 128/78 96 Room Air 12/07/16 12:11 2.00 Intake and Output 12/09/16 12/09/16 12/10/16 Cumulative From/Thru 15:00 23:00 07:00 12/06/16 23:30 - 12/10/16 06:00 Intake Total 90 ml 1420 ml 400 ml 8510 ml Output Total 950 ml 1550 ml 6875 ml Balance 90 ml 470 ml -1150 ml 1635 ml Intake Oral 1420 ml 400 ml 4088 ml IV Total 90 ml 4422 ml Output Urine Total 950 ml 1550 ml 6875 ml # Voids 3 # Bowel Movements 0 2 Exam NAD, comfortably laying down on the bed no JVD, MMM, no LAD RRR, nl s1, s2 no mrg CTAB, no w,c S,ND,NT,normoactive BS+ R ant cubital fossa: hard, tender indurated mass, minimal surrounding erythema, mildly warm, LE: warm, pulses 2/2, no edema IVs and Medications Medications Reviewed: Medications were reviewed in detail Lab and Diagnostics Result Diagram: 12/08/1652712/08/16527 Assessment & Plan 85-year-old male with a recent admission for TIA with subsequent finding of a hepatic mass acute, active Rt arm, abscess in anterior cubital fossa, believed to be from previous IV infiltrated, abscess drained for culture in ED. US suggested more intramuscular lesion. no surgical intervention recommended per surgery team. wound culture grew MSSA, which is different from BCX. -continue abx as below strep Dysgalactiae in BCX, 2, diff organism from wound, unclear source, pt was started on vanc and zosyn; change zosyn to ceftriaxone, -continue cfx per ID, likely switch to PCN -appreciate ID input, recommended MATTI, possible pre EGD given cirrhosis, -discussed with and , awaits card/gi eval, -keep in NPO today for now mild hyponatremia-Lactic acid normal; etiology unclear at this time with mild hypochloremia -Na level remained stable, no neurologic findings, -s/p -Bolused 1L in ED, NS 100ml/hr, stop fluid today -Recheck am labs chronic, stable sepsis, +SIRS, Strep bacteremia, source likely Rt arm abscess, unlikely GI source given negative HIDA scan -sepsis resolved with abx, ivf, BP remained stable, pt remained afebrile. Hyperbilirubinemia and elevated LFT's with anemia and thrombocytopenia second to uncharacterized liver mass; present on admission; ongoing, Mass found on previous US and CT. HIDA scan revealed normal GB. -Anemia work-up completed a couple days ago and will not repeat -Pt to follow-up out patient for MRI with liver protocol. Type II diabetes; present on admission; ongoing -Last A1c was 7.5 -Home medication: Metformin and unknown insulin -Hold metformin -Lantus 10 units in the evening -Low-dose correctional with no prandial Hypertension; present on admission; ongoing -Continue amlodipine and losartan Hyperlipidemia-continue home statin Gout-continue allopurinol Disposition: pending, VTE Prophylaxis: Sub-Q Heparin (Unfractionated) VTE Mechanical Devices: Intermittant Pneumatic CD Resuscitation Status: CPR: Attempt Resuscitation Time spent 35min Dionne James MD Dec 10, 2016 09:41
[2016-12-10] MEDS: cefTRIAXone Inj 2,000 MG in Dextrose 5% Minibag Plus 50 ML IV SCH (10:30)
[2016-12-10] MEDS: Insulin LISPRO 300 Unit/3 mL Inj SUBQ SCH ×4 (10:31→21:21)
--- NOTE | 2016-12-10 11:39 | NUR ---
Social Work-continued d/c planning/multidisciplinary rounds: Data:EMR reviewed. Pt is on day 3 for fever per H&P. Pt is not medically stable anticipate 1-2 more days. PT has seen pt and is recommending home at discharge. ID involved and pt may need IV abx at discharge, SW to follow for orders. Pt's family to provide transport home. SW will continue to follow. Assessment:Pt who is independent at baseline. Plan:Pt to discharge home when medically stable via POV. ID involved and pt may need IV abx at discharge, SW to follow for orders. SW will continue to follow. YOSELYN De La Garza
[2016-12-10] MEDS ORDERED: Propofol 10,000 mCg/mL 20 mL Inj ONE (12:39)
--- NOTE | 2016-12-10 14:09 | PROG NOTE ---
[address] [address] PROGRESS NOTE PATIENT: EVELNY SUTHERLAND : 1930 MR#: [id number] ADMIT: 12/07/2016 JOB ID: [id number] INFECTIOUS DISEASE FOLLOWUP: DATE: 12/10/2016 REASON FOR FOLLOWUP: Group G streptococcal bacteremia. 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 He denies ongoing fevers or chills. States that he is no longer confused and denies significant respiratory or cardiac complaints. PHYSICAL EXAMINATION: Reveals an afebrile gentleman, temperature 36.4, pulse 85, respiratory rate 20, blood pressure 128/78, saturating 96% on room air. He is in no acute distress. The patient is awake, alert, does not evidence any confusion today. Oral cavity negative. Lungs relatively clear. He has a harsh about III/ systolic murmur heard across the precordium. Abdomen benign. No skin lesions typical of endocarditis nor any conjunctival hemorrhage. LABORATORY DATA: Include white count 4200, platelets 116, creatinine 1.03. LFTs normal except alk phos 322, albumin 3.3. Procalcitonin 0.66. Urinalysis without white cells. His wound in his right antecubital fossa which apparently arose from an ambulance IV that was placed during his admission last week grew MSSA, and his blood cultures x2 grew group G strep. Repeat blood cultures have been ordered. IMAGING: No new x-rays are available. IMPRESSION: This remains a difficult case of a patient with two admissions in the last 10 days for changes in mental status and/or transient ischemic attacks. A transthoracic echo did not show any obvious vegetations during his admission in the last week, but the patient then developed additional confusion and was readmitted only to be found to have a beta hemolytic strep in his blood cultures. This certainly raises the possibility that he has endocarditis in addition to his underlying probably alcoholic cirrhosis. RECOMMENDATIONS: 1. Blood cultures x2 today. 2. The patient will need an upper endoscopy and this has been discussed with the hospitalist. 3. Once he is cleared with respect to his upper endoscopy, he can undergo a MATTI and that will finally allow us to know for sure whether or not the patient has a beta hemolytic strep endocarditis. If he does, we are looking at 4-6 weeks of therapy. If he does not, may shorten his IV antibiotics considerably or even switch to oral treatment and get him out of the hospital in the next day or two. Thank you very much. This case discussed with the hospitalist as well as Cardiology. KAL
--- NOTE | 2016-12-10 18:09 | NUR ---
Off the unit Pt taken off the unit for completion of EGD, pt has been NPO since midnight. No complains of increased pain, confusion or fever. Granddaughter has been at bedside for the day. IV is saline locked, pt able to transfer self from chair to gurney with 1 per assist. Dinner has been ordered awaiting return from procedure.
--- NOTE | 2016-12-10 18:34 | PCM.HPANE ---
Patient Data Date of Service: Dec 10, 2016 (325) Surgeon Admitting Provider:Jean-Claude Bustillos MD Attending Provider:Dionne James MD Primary Care Physician:Ember Tucker PA-C Other Provider: Reason for Visit Fever,Generalized Weakness Ht/WT & BMI Height (Feet): 5 Height (Inches): 9.00 Weight (Kilograms): 98.500 Body Mass Index 32.00 Allergies Coded Allergies: No Known Allergies (Unverified , 12/02/16) Past Anesthesia History Anesthesia History: Denies:: Anesthesia Reactions Diabetes History Hx Diabetes?: Yes (ON INSULIN AND METAFOMIN) Current Bedside Blood Glucose: 129 MRSA MRSA: No Medications Blood Thinner: Plavix Active Scripts Clopidogrel 75 Mg Ohrzfy79 Mg PO DAILY #60 TABLET Prov:Hiram Dutton MD 12/04/16 Reported Medications Insulin Glargine,Hum.rec.anlog ([place] Soljenniferar)300 Unit/Ml (1.5 Ml) Insuln.pen15 Unit SQ DAILY 12/07/16 Temazepam 15 Mg Wmgpgoz06 Mg PO HS PRN For Insomnia 30 Days Ref 0 12/07/16 Aspirin Chew 81 Mg Chew81 Mg PO QAM Ref 0 12/02/16 Ibuprofen 200 Mg Fbihgba146 Mg PO QAM Ref 0 12/02/16 Metformin (Glucophage)1,000 Mg Tablet1,000 Mg PO BIDWM Ref 0 12/02/16 Losartan Potassium 100 Mg Oteomz591 Mg PO QAM 12/02/16 Allopurinol 100 Mg Bnecjq112 Mg PO QAM Ref 0 12/02/16 Amlodipine 10 Mg Xyckme47 Mg PO QAM Ref 0 12/02/16 Simvastatin 40 Mg Ocvtjd36 Mg PO HS 30 Days Ref 0 12/02/16 Tamsulosin (Flomax)0.4 Mg Capsule0.8 Mg PO HS Ref 0 12/02/16 Glipizide 5 Mg Xltvqg86 Mg PO BIDAC 30 Days 12/02/16 Discontinued Reported Medications Insulin Glargine (Lantus U100 Insulin Vial)100 Unit/Ml Vial21 Unit SUBQ QAM #1 VIAL Ref 0 12/02/16 Alprazolam 0.5 Mg Tablet0.5 Mg PO Q8H PRN For Anxiety Ref 0 12/02/16 Discontinued Scripts Atorvastatin Calcium 10 Mg Dzebxv29 Mg PO HS #60 TABLET Prov:Hiram Dutton MD 12/04/16 History History of ENT Problems?: Yes HEENT History: Positive for:: Cataracts Denies:: Dysphagia Denture Type: None Teeth Condition: Tooth Decay Missing Teeth Other HEENT Pertinent History: RIGHT EYE CANCER,BUT NO PROBLEM TO SEE PER PT Hx of Heart Problems?: Yes Cardiovascular History: Positive for:: Edema Hypertension Denies:: Cardiac Surgery Chest Pain Congestive Heart Failure Heart Murmur Irregular Heartbeat Pacemaker Thrombophlebitis Hx of Respiratory Problem?: No Respiratory History: Denies:: Tuberculosis Hx Neurologic Problems?: Yes Neurological History: Positive for:: 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 ) TIA Hx of GI Problems?: Yes Other GI Pertinent History: varices survallence Hx of Problems?: No Male Hx: Denies:: Prostate Problems Scrotal Mass Testicular Surgery Hx Musculoskeletal Problems?: Yes Musculoskeletal History: Positive for:: Back Injury Joint Replacement (RT KNEE) Hx of Psycho/Social Problems?: Yes Psycho Social History: Positive for:: Hx Depression Hx Surgeries?: Yes (RT KNEE,) Hx Any Other Health Problems?: Yes Other History: Positive for:: Cancer (RIGHT EYE CANCER,BUT NO PROBLEM TO SEE PER PT) Hospitalization (TIA) Denies:: Thyroid Disease History Blood Transfusions: Positive for:: Accept Blood Products? Denies:: Blood Transfusions Hx Diabetes: Yes (ON INSULIN AND METAFOMIN)Bedside Blood Glucose: 129 Hx Alcohol Use: NoHx Substance Use: No Smoking Status: Unknown if Ever Smoker Stop/Bang Treated for Sleep Apnea?: No Do You Have a CPAP Machine?: No S-Snoring: Do You Snore Loudly: No T-Tired: feel tired, fatigued: Yes O-Obsered: Observed not breath: No P-Blood Pressure: treated: Yes B- Body Mass Index > 35 kg/m2: No A- Age over 50: Yes N- Neck Large Circumference: No G- Gender Male: Yes SYL Total Score: 4 SYL Risk Assessment: Low Risk, <3 Yes SYL Category 2: Yes Risk Assessment Category Category 1A: Patient has history of documented sleep apnea, and HAS NOT received any narcotic, sedative or anesthesia administration during this stay. Category 1B: Patient has history of documented sleep apnea, and HAS received any narcotic , sedative or anesthesia administration during this stay Category 2: Patient has SUSPECTED Obstructive Sleep Apnea, and HAS received any narcotic , sedative or anesthesia administration during this stay. Category 3: Patient has SUSPECTED Obstructive Sleep Apnea and HAS NOT received narcotic, sedative or anesthesia administration during this stay. Category 4: Outpatient in Procedural Areas with known sleep apnea or who screen positive for High Risk via the STOP/BANG questionnaire. Exam Exam Vital Signs Vital Signs Date Time Temp Pulse Resp B/P Pulse Ox O2 Delivery O2 Flow Rate FiO2 12/10/16 18:30 36.7 78 18 162/89 96 Room Air 12/10/16 18:26 36.5 74 14 144/85 97 Room Air 12/10/16 14:06 36.6 80 18 160/95 94 Room Air 12/10/16 13:19 Room Air General Appearance: Alert, Oriented X3, Cooperative, No Acute Distress HEENT/AIRWAY: MP 2 Lungs: Clear to Auscultation Heart: Exam Unremarkable Meds/Labs/Diagnostics Admission Meds Current Medications Tamsulosin HCl (Flomax) 0.8 mg HS PO Last administered on 12/09/16 20:50; Start 12/09/16 at 21:00 Atorvastatin Calcium (Lipitor) 20 mg HS PO Last administered on 12/09/16 20:51 ; Start 12/09/16 at 21:00 Bedside Blood Glucose: 129 Labs Test 12/06/16 23:31 12/06/16 23:59 12/07/16 01:22 12/07/16 06:35 Troponin T 0.010ug/L (0.0-0.011) Pro-B-Type Natriuretic Peptide 890.5pg/mL (0-486) Lipase 54U/L (13-60) Lactic Acid Level 1.4mmol/L (0.4-2.0) Urine Color Callie (YELLOW) Urine Appearance Slightly cloudy Urine pH 5.5 (5.0-8.0) Urine Specific [place] 1.022 (1.003-1.035) Urine Protein 100mg/dL (NEG,TRACE) Urine Glucose (UA) Negativemg/dL (NEGATIVE) Urine Ketones Negativemg/dL (NEGATIVE) Urine Occult Blood Large (NEGATIVE) Urine Nitrite Negative (NEGATIVE) Urine Bilirubin Small (NEGATIVE) Urine Ictotest Positive (Negative) Urine Urobilinogen 4mg/dL (NORMAL) Urine Leukocyte Esterase Negative (NEGATIVE) Urine RBC 11-50/hpf (0-2) Urine WBC 0-5/hpf (0-5) Urine Epithelial Cells Occasional/hpf (NONE-MOD) Urine Crystals Amorphous urates (NONE Urine Bacteria Few/hpf (NONE-FEW) Urine Hyaline Casts None/lpf (NONE) Urine Granular Casts None seen (NONE SEEN) Urine Waxy Casts None seen (NONE SEEN) Urine Red Blood Cell Casts None seen (NONE SEEN) Urine White Blood Cell Casts None seen (NONE SEEN) Urine Mucus Present (None Seen) Urine Trichomonas None seen (NONE SEEN) Urine Yeast None (NONE SEEN) Urinalysis Comment Fine granular casts Urine Culture Reflexed Not indicated Ammonia 68ug/dL (18-53) Test 12/08/16 05:28 White Blood Count 4.2th/mm3 (3.8-10.1) Red Blood Count 3.26mil/mm3 (4.40-5.80) Hemoglobin 10.2g/dL (13.8-17.2) Hematocrit 30.0% (41.0-50.0) Mean Corpuscular Volume 92.0fL (81-100) Mean Corpuscular Hemoglobin 31.3pg (27.0-35.0) Mean Corpuscular Hemoglobin Concent 34.0% (32.0-37.0) Red Cell Distribution Width 15.4% (12.3-15.4) Platelet Count 116bil/L (150-400) Neutrophils (%) (Auto) 45.0% (40-74) Lymphocytes (%) (Auto) 30.6% (14-46) Monocytes (%) (Auto) 20.5% (4-12) Eosinophils (%) (Auto) 1.2% (0-5) Basophils (%) (Auto) 1.0% (0-3) Sodium Level 131mEq/L (134-144) Potassium Level 4.2mEq/L (3.5-5.2) Chloride Level 97mEq/L (97-108) Carbon Dioxide Level 18mmol/L (18-29) Blood Urea Nitrogen 22mg/dL (8-27) Creatinine 1.03mg/dL (0.76-1.27) Estimat Glomerular Filtration Rate 73mL/min (>59) Glucose Level 159mg/dL (60-99) Calcium Level 8.3mg/dL (8.5-10.1) Phosphorus Level 2.7mg/dL (2.5-4.9) Magnesium Level 1.9mg/dL (1.6-2.6) Total Bilirubin 1.1mg/dL (0.0-1.2) Aspartate Amino Transf (AST/SGOT) 50U/L (0-50) Alanine Aminotransferase (ALT/SGPT) 39U/L (0-44) Alkaline Phosphatase 322U/L (25-160) Total Protein 6.4g/dL (6.4-8.4) Albumin 3.3g/dL (3.4-5.0) Procalcitonin 0.66ng/mL (0.00-0.08) Plan Impression Patient chart reviewed, patient interviewed and anesthestic plan with risks, benefits, and alternatives discussed, and informed consent obtained. NPO per Anesth. Guidelines: Yes ASA Physical Status: ASA3 Severe Disease Anesthetic Plan: GA Bene/Risks/Altern/Consents: Yes HP Complete Prior to Induction: Yes Tyler Estrella MD Dec 10, 2016 18:34
--- NOTE | 2016-12-10 18:58 | PCM.ENDEGD ---
EGD Date of Service: Dec 10, 2016 Physician Jimi Galdamez Pre Procedure Diagnosis: Varices screening Post Procedure Dx & Findings: Grade 1 varices and portal hypertensive gastropathy diffusely atrophic gastropathy with scarring. Procedure Esophagogastroduodenoscopy PROCEDURE IN DETAIL: After proper sedation, Olympus video endoscope was inserted into patient's mouth and esophagus was successfully intubated. Scope introduced esophagus. Esophagus showed normal shiny whitish mucosa consistent with squamous cell component. Z line was intact at 40 cm from the incisors. There were 3 columns of grade 1 varices starting in the midesophagus to the GE junction. No stigmata noted. Scope further advanced to the stomach. Evidence of portal hypertensive gastropathy noted with snakeskin pattern of the fundus as well as the body the stomach. The entire stomach however showed diffuse erosive gastropathy. Antrum showed significant amount of scarring.. Cardia fundus body antrum pylorus were all visualized. Retroflexion was done. Stomach was easily inflated and deflatable using air. Scope further advanced to the distal duodenum. Duodenum revealed normal villous structures with normal appearing folds without any mass ulcer erosion. 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 Recommend acid suppression with oral PPI as an outpatient. Recommend IV Protonix while the patient in the hospital. Presedation Assessment Risks and Benefits Informed consent was obtained from the patient after all risks and benefits including but not limited to drug reaction, infection, pain, bleeding, perforation, as well as alternatives were discussed. Patient monitoring Continuous pulse oximetry, cardiac monitoring, blood pressure monitoring, IV access, and oxygen at 2L per nasal cannula. Complications There were no periprocedural complications identified. Post Procedure Plan Post Procedure Recommendations 1. Restrict activities today. 2. Resume normal activities in the morning. 3. Resume medications. 4. GERD behavioral modification: - Avoid fatty, acidic, spicy, large meals - Do not lie down after meals - Do not eat or drink anything for at least 2 1/2 hours before going to bed at night - Discontinue tobacco and alcohol - Decrease or avoid caffeine - Avoid chocolate and mints - Decrease weight - Avoid aspirin and non steroidal anti-inflammatory agents (NSAID) such as Aleve, Advil, Mobic, Naproxen, Ibuprofen, etc 5. Add proton pump inhibitor. Take 30 minutes before 1st meal of the day. 6. Patient informed of normal post procedure side effects as bloating, drowsiness, blood streaking in the stool 7. If gastric biopsy reveal H.pylori, continue with appropriate treatment 8. If small bowel biopsy reveals celiac, continue with appropriate treatment 9. Please don't hesitate to call me with any questions Jimi Galdamez MD Dec 10, 2016 18:58
--- NOTE | 2016-12-10 18:59 | PCM.ANEP1 ---
Post Anesthesia PACU Phase 1 Assessment Vital Signs 124/72, 96%, 10, 68 Vital Signs Date Time Temp Pulse Resp B/P Pulse Ox O2 Delivery O2 Flow Rate FiO2 12/10/16 18:30 36.7 78 18 162/89 96 Room Air 12/10/16 18:26 36.5 74 14 144/85 97 Room Air 12/10/16 14:06 36.6 80 18 160/95 94 Room Air 12/10/16 13:19 Room Air Anesthetic Administered: GA Level of Alertness: Awake, talking TYLER's with Equal Strength: Yes Pain: No Nausea or Vomiting: No CV Function & Hydration Stable: Yes Airway Device: none Lungs: Clear to Auscultation Dermatome Level: Full Sensation Summary easy sedation PACU Phase 2 Assessment Complications: No Follow up Care: No Patient Instructions Provided: N/A Tyler Estrella MD Dec 10, 2016 18:59
[2016-12-10] MEDS: Insulin GLARgine 100 Unit/mL Syringe SUBQ SCH (21:20)
[2016-12-11] VITALS (9 sets, daily range): BP systolic 130–165; BP diastolic 68–85; PULSE 59–77; RESP 17–18; O2SAT 91–97
[2016-12-11] MEDS: Heparin 5,000 Unit/mL Inj SUBQ SCH ×3 (00:30→08:30)
[2016-12-11 05:34] LABS: BASOPHILS % (AUTO) 0.8 % (0-3); MONOCYTES % (AUTO) 21.2 % (4-12); Mean Corpuscular Hemoglobin 31.3 pg (27.0-35.0); Mean Corpuscular Volume 92.3 fL (81-100); NEUTROPHILS % (AUTO) 41.9 % (40-74); Platelet Count 209 bil/L (150-400)
--- NOTE | 2016-12-11 06:16 | NUR ---
Activity, NPO: Pt able to sleep a few hours early in the night, developed a head/neck ache and requested to sit up in the chair at about 0130. Tylenol was administered and effective. Pt was able to sleep sitting upright in the chair for a couple more hours. Other than a sip of water and the Tylenol, pt has been NPO since midnight for anticipated MATTI this morning. Ambulated with FWW and staff assist around the unit x1 this morning.
[2016-12-11] MEDS: Insulin LISPRO 300 Unit/3 mL Inj SUBQ SCH ×2 (07:49→11:05)
--- NOTE | 2016-12-11 08:20 | NUR ---
Off the unit Pt taken off the unit to [facility] for completion of MATTI, VSS, no complains of increased pain, IV intact and SL. Addendum: 12/11/16 at 1049 by SHARONDA URIAS RN Pt back from MATTI, no complains of increased pain, Pt able to transfer self from gurney to bed with FWW. Call light in place, will continue to monitor.
[2016-12-11] MEDS ORDERED: 0.9% Sodium Chloride 500 ML IV SCH (08:50)
[2016-12-11] MEDS ORDERED: fentaNYL PF 50 mCg/mL 5 mL Inj IVPUSH PRN (08:50)
--- NOTE | 2016-12-11 09:00 | NUR ---
Patient brought to [facility] for a MATTI by Dr Casas this morning. Patient is "sure" he cannot swallow tube without having anesthesia. Arranging anesthesia for MATTI now.
[2016-12-11] MEDS ORDERED: Lactated Ringer's 500 ML IV PRN (09:01)
[2016-12-11] MEDS ORDERED: Lactated Ringer's 1,000 ML IV ONE (09:01)
[2016-12-11] MEDS ORDERED: Lactated Ringer's 1,000 ML IV SCH (09:01)
--- NOTE | 2016-12-11 09:03 | PCM.HPANE ---
Patient Data Surgeon Admitting Provider:Jean-Claude Bustillos MD Attending Provider:Dionne James MD Primary Care Physician:Ember Tucker PA-C Other Provider: Reason for Visit Fever,Generalized Weakness Ht/WT & BMI Height (Feet): 5 Height (Inches): 9.00 Weight (Kilograms): 98.500 Body Mass Index 32.00 Allergies Coded Allergies: No Known Allergies (Unverified , 12/02/16) Past Anesthesia History Anesthesia History: Denies:: Abnormal Airway, Anesthesia Reactions, Difficult Intubation Diabetes History Hx Diabetes?: Yes (ON INSULIN AND METAFOMIN) Glycemic Control: Insulin & Oral Medication Current Bedside Blood Glucose: 169 MRSA MRSA: No Medications Blood Thinner: Plavix Active Scripts Clopidogrel 75 Mg Lgjvei50 Mg PO DAILY #60 TABLET Prov:Hiram Dutton MD 12/04/16 Reported Medications Insulin Glargine,Hum.rec.anlog ([place] Soljenniferar)300 Unit/Ml (1.5 Ml) Insuln.pen15 Unit SQ DAILY 12/07/16 Temazepam 15 Mg Sxkjjdl13 Mg PO HS PRN For Insomnia 30 Days Ref 0 12/07/16 Aspirin Chew 81 Mg Chew81 Mg PO QAM Ref 0 12/02/16 Ibuprofen 200 Mg Aftdonn290 Mg PO QAM Ref 0 12/02/16 Metformin (Glucophage)1,000 Mg Tablet1,000 Mg PO BIDWM Ref 0 12/02/16 Losartan Potassium 100 Mg Mvzrld405 Mg PO QAM 12/02/16 Allopurinol 100 Mg Seyrbw127 Mg PO QAM Ref 0 12/02/16 Amlodipine 10 Mg Lalxhq12 Mg PO QAM Ref 0 12/02/16 Simvastatin 40 Mg Rvgfar30 Mg PO HS 30 Days Ref 0 12/02/16 Tamsulosin (Flomax)0.4 Mg Capsule0.8 Mg PO HS Ref 0 12/02/16 Glipizide 5 Mg Eashyd33 Mg PO BIDAC 30 Days 12/02/16 Discontinued Reported Medications Insulin Glargine (Lantus U100 Insulin Vial)100 Unit/Ml Vial21 Unit SUBQ QAM #1 VIAL Ref 0 12/02/16 Alprazolam 0.5 Mg Tablet0.5 Mg PO Q8H PRN For Anxiety Ref 0 12/02/16 Discontinued Scripts Atorvastatin Calcium 10 Mg Cacpcl70 Mg PO HS #60 TABLET Prov:Hiram Dutton MD 12/04/16 History History of ENT Problems?: Yes HEENT History: Positive for:: Cataracts Denies:: Abnormal Airway Difficult Intubation Dysphagia Denture Type: None Teeth Condition: Tooth Decay Missing Teeth Other HEENT Pertinent History: RIGHT EYE CANCER,BUT NO PROBLEM TO SEE PER PT Hx of Heart Problems?: Yes Cardiovascular History: Positive for:: Edema Hypertension Denies:: Cardiac Surgery Chest Pain Congestive Heart Failure Heart Murmur Irregular Heartbeat Pacemaker Thrombophlebitis Hx of Respiratory Problem?: No Respiratory History: Denies:: Tuberculosis Hx Neurologic Problems?: Yes Neurological History: Positive for:: 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 042016 ) TIA Hx of GI Problems?: Yes Other GI Pertinent History: varices survallence Hx of Problems?: No Male Hx: Denies:: Prostate Problems Scrotal Mass Testicular Surgery Hx Musculoskeletal Problems?: Yes Musculoskeletal History: Positive for:: Back Injury Joint Replacement (RT KNEE) Hx of Psycho/Social Problems?: Yes Psycho Social History: Positive for:: Hx Depression Hx Surgeries?: Yes (RT KNEE,) Hx Any Other Health Problems?: Yes Other History: Positive for:: Cancer (RIGHT EYE CANCER,BUT NO PROBLEM TO SEE PER PT) Hospitalization (TIA) Denies:: Thyroid Disease History Blood Transfusions: Positive for:: Accept Blood Products? Denies:: Blood Transfusions Hx Diabetes: Yes (ON INSULIN AND METAFOMIN)Bedside Blood Glucose: 169 Hx Alcohol Use: NoHx Substance Use: No Smoking Status: Unknown if Ever Smoker Stop/Bang Treated for Sleep Apnea?: No Do You Have a CPAP Machine?: No S-Snoring: Do You Snore Loudly: No T-Tired: feel tired, fatigued: Yes O-Obsered: Observed not breath: No P-Blood Pressure: treated: Yes B- Body Mass Index > 35 kg/m2: No A- Age over 50: Yes N- Neck Large Circumference: No G- Gender Male: Yes SYL Total Score: 4 SYL Risk Assessment: Low Risk, <3 Yes SYL Category 2: Yes Risk Assessment Category Category 1A: Patient has history of documented sleep apnea, and HAS NOT received any narcotic, sedative or anesthesia administration during this stay. Category 1B: Patient has history of documented sleep apnea, and HAS received any narcotic , sedative or anesthesia administration during this stay Category 2: Patient has SUSPECTED Obstructive Sleep Apnea, and HAS received any narcotic , sedative or anesthesia administration during this stay. Category 3: Patient has SUSPECTED Obstructive Sleep Apnea and HAS NOT received narcotic, sedative or anesthesia administration during this stay. Category 4: Outpatient in Procedural Areas with known sleep apnea or who screen positive for High Risk via the STOP/BANG questionnaire. Low Risk, <3 Yes Exam Exam Vital Signs Vital Signs Date Time Temp Pulse Resp B/P Pulse Ox O2 Delivery O2 Flow Rate FiO2 12/11/16 08:02 36.4 77 18 136/81 97 Room Air 12/11/16 04:45 36.7 77 18 131/74 97 Room Air General Appearance: Alert, Oriented X3, Cooperative, No Acute Distress HEENT/AIRWAY: MP 2 Lungs: Clear to Auscultation Heart: Exam Unremarkable Meds/Labs/Diagnostics Bedside Blood Glucose: 169 Labs Test 12/06/16 23:31 12/06/16 23:59 12/07/16 01:22 12/07/16 06:35 Troponin T 0.010ug/L (0.0-0.011) Pro-B-Type Natriuretic Peptide 890.5pg/mL (0-486) Lipase 54U/L (13-60) Lactic Acid Level 1.4mmol/L (0.4-2.0) Urine Color Callie (YELLOW) Urine Appearance Slightly cloudy Urine pH 5.5 (5.0-8.0) Urine Specific [place] 1.022 (1.003-1.035) Urine Protein 100mg/dL (NEG,TRACE) Urine Glucose (UA) Negativemg/dL (NEGATIVE) Urine Ketones Negativemg/dL (NEGATIVE) Urine Occult Blood Large (NEGATIVE) Urine Nitrite Negative (NEGATIVE) Urine Bilirubin Small (NEGATIVE) Urine Ictotest Positive (Negative) Urine Urobilinogen 4mg/dL (NORMAL) Urine Leukocyte Esterase Negative (NEGATIVE) Urine RBC 11-50/hpf (0-2) Urine WBC 0-5/hpf (0-5) Urine Epithelial Cells Occasional/hpf (NONE-MOD) Urine Crystals Amorphous urates (NONE Urine Bacteria Few/hpf (NONE-FEW) Urine Hyaline Casts None/lpf (NONE) Urine Granular Casts None seen (NONE SEEN) Urine Waxy Casts None seen (NONE SEEN) Urine Red Blood Cell Casts None seen (NONE SEEN) Urine White Blood Cell Casts None seen (NONE SEEN) Urine Mucus Present (None Seen) Urine Trichomonas None seen (NONE SEEN) Urine Yeast None (NONE SEEN) Urinalysis Comment Fine granular casts Urine Culture Reflexed Not indicated Ammonia 68ug/dL (18-53) Test 12/08/16 05:28 12/11/16 05:00 Phosphorus Level 2.7mg/dL (2.5-4.9) White Blood Count 3.8th/mm3 (3.8-10.1) Red Blood Count 3.51mil/mm3 (4.40-5.80) Hemoglobin 11.0g/dL (13.8-17.2) Hematocrit 32.4% (41.0-50.0) Mean Corpuscular Volume 92.3fL (81-100) Mean Corpuscular Hemoglobin 31.3pg (27.0-35.0) Mean Corpuscular Hemoglobin Concent 34.0% (32.0-37.0) Red Cell Distribution Width 15.5% (12.3-15.4) Platelet Count 209bil/L (150-400) Neutrophils (%) (Auto) 41.9% (40-74) Lymphocytes (%) (Auto) 32.5% (14-46) Monocytes (%) (Auto) 21.2% (4-12) Eosinophils (%) (Auto) 1.0% (0-5) Basophils (%) (Auto) 0.8% (0-3) Sodium Level 137mEq/L (134-144) Potassium Level 4.0mEq/L (3.5-5.2) Chloride Level 99mEq/L (97-108) Carbon Dioxide Level 20mmol/L (18-29) Blood Urea Nitrogen 17mg/dL (8-27) Creatinine 1.00mg/dL (0.76-1.27) Estimat Glomerular Filtration Rate 75mL/min (>59) Glucose Level 177mg/dL (60-99) Calcium Level 9.0mg/dL (8.5-10.1) Magnesium Level 2.0mg/dL (1.6-2.6) Total Bilirubin 0.8mg/dL (0.0-1.2) Aspartate Amino Transf (AST/SGOT) 42U/L (0-50) Alanine Aminotransferase (ALT/SGPT) 35U/L (0-44) Alkaline Phosphatase 404U/L (25-160) Total Protein 7.2g/dL (6.4-8.4) Albumin 3.5g/dL (3.4-5.0) Procalcitonin 0.35ng/mL (0.00-0.08) Plan Impression Patient chart reviewed, patient interviewed and anesthestic plan with risks, benefits, and alternatives discussed, and informed consent obtained. NPO per Anesth. Guidelines: Yes ASA Physical Status: ASA3 Severe Disease Anesthetic Plan: GA, MAC Bene/Risks/Altern/Consents: Yes HP Complete Prior to Induction: Yes Ravi Smith MD Dec 11, 2016 09:03
[2016-12-11] MEDS ORDERED: Ondansetron 2 mg/mL 2 mL Inj IVPUSH PRN (09:05)
[2016-12-11] MEDS ORDERED: fentaNYL-PF 50 mCg/mL 2 mL Inj IVPUSH PRN (09:05)
[2016-12-11] MEDS ORDERED: MetoCLOpramide 5 mg/mL 2 mL Inj IVPUSH PRN (09:05)
[2016-12-11] MEDS ORDERED: EPHEDrine Sulfate 50 mg/mL Inj IVPUSH PRN (09:05)
[2016-12-11] MEDS ORDERED: Phenylephrine 10,000 mCg/mL Inj IVPUSH PRN (09:05)
--- NOTE | 2016-12-11 09:59 | NUR ---
MATTI completed with anesthesia - patient tolerated procedure with no complications.
--- NOTE | 2016-12-11 10:30 | NUR ---
Transferred back to room 3006 per wilson. Report given on sedation to RN for room 3005. Noted Redness of Left AC to hospitalist - flushes well used for sedation for MATTI without difficulty.
[2016-12-11] MEDS ORDERED: Oritavancin Diphosphate 1,200 MG in Dextrose 5% 1,000 ML IV ONE (10:40)
--- NOTE | 2016-12-11 10:54 | DRSVH ---
[facility] [address] [place] [address] Echocardiogram Report Name: EVELYN SUTHERLAND MStudy Date: 12/11/2016 Height: 69 in Hospital Exam Location: [facility] Weight: 217 lb Gender: Male BSA: 2.1 m2 : 1930 Age: 85 yrs BP: 159/82 mmHg Reason For Study: Bacteremia Ordering Physician: Performed By: Anna Spencer Referring Physician: Josh Rosales Interpretation Summary The left ventricular ejection fraction is normal. No thrombus is detected in the left atrial appendage. Echobright structure noted in RA, most likely a catheter tip or prominent eustasation valve There is trace mitral regurgitation. There is mild to moderate aortic stenosis. There is moderate aortic valve sclerosis. Leaflet mobility is moderately reduced. There is no tricuspid valve vegetation. No tricuspid regurgitation. Procedure: The patient was brought to the [facility] in a fasting state. Informed consent for Transesophageal Echocardiogram, and use of a contrast agent as needed, was obtained prior to the procedure. Sedation was managed by anesthesiologist; see anesthesiology notes for details. The patient's vital signs, including blood pressure, heart rate, pulse oximetry and cardiac rhythm were monitored throughout the procedure and remained stable. The transesophageal probe was passed without difficulty. The patient tolerated the procedure well without evidence of orophangeal or esophageal trauma. The patient was in normal sinus rhythm during the exam. There were no complications. Left Ventricle: The left ventricular ejection fraction is normal. Atria: No thrombus is detected in the left atrial appendage. Echobright structure noted in RA, most likely a catheter tip or prominent eustasation valve. The atrial septum is aneurysmal. Mitral Valve: The mitral valve is normal. There is no vegetation seen on the mitral valve. There is trace mitral regurgitation. Aortic Valve: There is moderate aortic valve sclerosis. Leaflet mobility is moderately reduced. There is no aortic valvular vegetation. There is mild to moderate aortic stenosis. There is trace aortic regurgitation. Tricuspid Valve: The tricuspid valve is normal. The tricuspid valve is not well visualized. There is no tricuspid valve vegetation. No tricuspid regurgitation. Pulmonic Valve: The pulmonic valve is not well visualized. There is no pulmonic valvular regurgitation. Electronically signed by: Ryan Casas on Reading Physician:12/11/2016 10:53 AM
--- NOTE | 2016-12-11 10:57 | PCM.DIMED ---
Discharge Instructions Date of Service Dec 11, 2016 Dates of Hospitalization Dec 07, 2016 at 02:47 Discharge Diagnosis Discharge Diagnosis acute dx sepsis, +SIRS, Strep bacteremia as below Rt antecubital MSSA abscess believed to be from previous IV infiltrated, Strep Dysgalactiae bacteremia, unclear source, resolved mild hyponatremia liver cirrhosis,Hyperbilirubinemia and elevated LFT from eoth abuse, newly found portal gastropathy and [id number] chronic dx Type II diabetes; Hypertension Hyperlipidemia Gout Diet Discharge Diet: Heart Healthy Activity Discharge Activity: No restrictions Call your provider Call your provider for: Fever or Chills Patient Instructions Patient Instructions You were hospitalized with confusion, fever, likely due to bacterial infection in your blood. Your condition greatly improved with iv antibiotics. You underwent intervention to see the source of infection, which didn't reveal any persistent infection. Please note that your infection is cleared up, please return to hospital if you notice any fever, chills, confusion again. Please follow up with in 1-2weeks as scheduled Follow-up Provider: Chidi Daniels MD Follow-up with PCP in: 2 weeks Dionne James MD Dec 11, 2016 10:57
[2016-12-11] MEDS: cefTRIAXone Inj 2,000 MG in Dextrose 5% Minibag Plus 50 ML IV SCH (11:04)
--- NOTE | 2016-12-11 11:36 | PROG NOTE ---
[address] [address] PROGRESS NOTE PATIENT: EVELYN SUTHERLAND : 1930 MR#: [id number] ADMIT: 12/07/2016 JOB ID: [id number] DATE: 12/11/2016 REASON FOR FOLLOWUP: Unexplained group B strep bacteremia as well as right antecubital fossa MSSA abscess secondary to infected IV line. INTERVAL HISTORY: Overnight, the patient reports he feels well. No fevers, chills, or sweats. No significant cough, shortness of breath, chest pain, nausea, vomiting, or diarrhea. His right antecubital abscess is gradually improving. He does note that in his left antecubital fossa he now has increasing redness around his IV there. The patient would like to avoid additional Intravenous, and IV therapy if at all possible which is not surprising. PHYSICAL EXAMINATION: Reveals an afebrile comfortable gentleman temp 36.4, pulse 64, respiratory rate 18, blood pressure 151/81. He is saturating well on 2 L. He is in no acute distress at all. Oral cavity negative. Lungs clear. Cardiac tones with persistent 2/6 murmur as previously heard. Abdomen distended, soft, nontender. No skin rash. No evidence of soft tissue infection. LABORATORY DATA: Include a white count of 3800, platelet count 209. His creatinine 1.0. LFTs normal. Alk phos 404. Urinalysis 0-5 white cells. Micro studies include the positive blood cultures for strep dysgalactiae sub-species equis from admission back on the . That organism was quite sensitive to vancomycin as well as penicillin. Additionally had MSSA which grew from the right antecubital fossa back on admission. The followup blood cultures I ordered yesterday were never done and it is unclear why. We will discuss this with the lab. The patient's transesophageal echo was just done by Dr. Casas and I discussed this in detail with him in person. That transesophageal echo showed no evidence of endocarditis and Dr. Casas is convinced that is not the diagnosis here. Additionally the patient also underwent upper endoscopy to clear him for the study. He was found to have grade 1 varices consistent with his diagnosis of alcoholic cirrhosis. IMPRESSION: This is an 85-year-old remarkably healthy gentleman with underlying alcoholic cirrhosis and stage one varices. He was admitted a week or so ago with unexplained transient ischemic attack. During that admission which lasted only a day or two he had a fever, but it was not addressed in any way. He then returned was readmitted on the with confusion and his blood cultures grew group B strep. At that time, it was also noted he had infection of his right antecubital fossa which dates back to an IV that was placed there during his admission the first week of November. Since admission, we have been treating him with ceftriaxone to cover both the group B strep in his blood as well as the MSSA in his antecubital fossa. He has been tolerating that quite well. Unfortunately he has now developed inflammation at the site of his left antecubital fossa. IV which would place during this admission. Given his profound problems with peripheral IVs in both antecubital fossas, I am inclined not to place a midline catheter for 10 weeks of IV therapy which might be the standard answer for this group B strep bacteremia. Instead I will try oritavancin, which is less well studied, but has excellent activity against group C and group G strep and in this organism we know it is very vanco susceptible so it should be a good choice. RECOMMENDATIONS: 1. The patient will be given a single dose of oritavancin this morning. 2. Following that his PICC line could be pulled and will consider his antibiotic therapy complete. 3. I would like to see this patient in my clinic on December 18 one week from today. 4. I have no objection to continuing the ceftriaxone for today's dose at least, but he can certainly only be discharged later today if there are no other concerns.
--- NOTE | 2016-12-11 12:05 | NUR ---
Social Work-discharge: Data:EMR reviewed. Pt is on day 4 of hospitalization for fever per H&P. Pt is medically stable for discharge. Pt resides at home with his who is on Hospice. Pt's daughter involved in pt's care. PT has cleared pt for home no needs. ID MD does not feel like pt needs any abx at discharge. No MD orders received. Pt's family to provide transport home today. No other SW needs identified. All updated and agreeable to plan. Assessment:pt who is independent at baseline. Plan:Pt to discharge home today via POV. No other SW needs identified. All updated and agreeable to plan. YOSELYN De La Garza
--- NOTE | 2016-12-11 13:22 | PCM.DC.MED ---
Discharge Summary Date of Service Dec 11, 2016 Dates of Hospitalization Date of Hospital Admission Dec 07, 2016 at 02:47 Date of Discharge: Dec 11, 2016 Providers: Admitting Physician: Jean-Claude Bustillos MD Primary Care Physician: Ember Tucker PA-C Attending Physician: Dionne James MD Diagnosis at Time of Discharge Diagnosis at Time of Discharge acute dx sepsis, +SIRS, Strep bacteremia as below Rt antecubital MSSA abscess believed to be from previous IV infiltrated, Strep Dysgalactiae bacteremia, unclear source, resolved mild hyponatremia liver cirrhosis,Hyperbilirubinemia and elevated LFT from eoth abuse, newly found portal gastropathy and [id number] chronic dx Type II diabetes; Hypertension Hyperlipidemia Gout Consultations ID Procedures XRay, CTs & MRIs PROCEDURE: NM HIDA SCAN WITHOUT CCK RADIOPHARMACEUTICAL: 5.4 mCi Tc-99m mebrofenin IV. INDICATIONS: 85 year-old male with elevated liver function tests. TECHNIQUE: Following intravenous administration of Tc-99m mebrofenin, sequential anterior abdominal images were obtained through at least 60 minutes. 2.0 mg intravenous morphine was administered at the one hour willem. COMPARISON: [facility], CT, CT ABD PELVIS W CON, 12/07/2016, 1:24. FINDINGS: There is normal tracer uptake and excretion by the liver. There is normal visualization of intrahepatic ducts, common bile duct. There is also uptake of radiotracer within a contracted gallbladder lumen before and after intravenous morphine administration. There is normal tracer excretion into the duodenum. IMPRESSION: No scintigraphic evidence for acute cholecystitis or biliary ductal obstruction. Dictated by: Mike Dias M.D. on 12/07/2016 at 19:17 Approved by: Mike Dias M.D. on 12/07/2016 at 19:21 PROCEDURE: CT ABDOMEN AND PELVIS WITH CONTRAST ([id number]) INDICATIONS: 85 year-old male with fever and elevated alkaline phosphatase levels. TECHNIQUE: After the administration of intravenous contrast, 5 mm thick sections acquired from the diaphragm to the symphysis. 5 mm coronal and sagittal reformats were acquired. For radiation dose reduction, the following was used: automated exposure control, adjustment of mA and/or kV according to patient size. COMPARISON: [facility], CT, CT ABD W&WO CON PELVIS W CON, 12/04/2016 , 13:12. FINDINGS: Preliminary interpretation rendered by [facility]. Image quality: Excellent. ABDOMEN: Lung bases: Lung bases are clear. Heart size is normal. Solid organs: Liver is normal in size and enhancement, with mild scalloping of the hepatic capsule indicating cirrhosis. Gallbladder is contracted as before, containing several calcified gallstones. Biliary system is non dilated. Pancreas enhances normally. There is moderate splenomegaly as before, measuring 16.6 cm in craniocaudal dimensions. There is patchy splenic calcification as before, presumably from remote subcapsular hematoma. No adrenal nodules. Kidneys demonstrate normal size and enhancement, without hydronephrosis. On axial image 78, a 1 mm stone is situated at the right ureterovesical junction. Peritoneum and bowel: Bowel loops demonstrate normal wall thickness and caliber. There is descending and sigmoid colon diverticulosis. No free fluid or air. Nodes and vessels: No retroperitoneal or mesenteric adenopathy by size criteria. Aorta and inferior vena cava are normal in size, with mild aortoiliac atherosclerosis. Miscellaneous: There is tiny periumbilical ventral hernia. PELVIS: Genitourinary: Bladder wall thickness is normal. Prostate gland is prominent in overall size. Miscellaneous: Small bilateral fat-containing inguinal hernias are present. No inguinal adenopathy by CT size criteria. Bones: No suspicious bony lesions. There is nonacute L2 vertebral body superior endplate compression fracture as before. There is multilevel lumbar and lower thoracic spine disc degeneration. IMPRESSION: 1. Several calcified gallstones within a contracted gallbladder as before. 2. Cirrhotic liver again noted, as well as moderate splenomegaly from portal hypertension. 3. 1 mm stone at the right ureterovesical junction is again noted, without hydroureteronephrosis. 4. Descending and sigmoid colon diverticulosis, without acute diverticulitis. 5. Small bilateral fat-containing inguinal hernias, as well as tiny periumbilical fat-containing ventral hernia. 6. Nonacute mild L2 vertebral body superior endplate compression fracture. 7. Prominent prostate gland again noted, consistent with benign prostatic hyperplasia. Concomitant prostate neoplasm cannot be excluded by CT imaging appearances. Dictated by: Mike Dias M.D. on 12/07/2016 at 8:15 Approved by: Mike Dias M.D. on 12/07/2016 at 8:26 Brief History History of present illness obtained by Dr.Fuimaono 85-year-old male history of diabetes, hypertension, depression, cirrhosis, recent TIA who presents to emergency department via EMS due to confusion that, per family, has continued consistently over the last 6-7 days with new accompanied fever 101.7 measured by EMS. Patient is able to give a history and denies headache, nausea, chest pain, abdominal pain, shortness of breath, cough , dysuria, diarrhea, and vomiting. He denies focal neurological symptoms. He was recently here on 12/02 for TIA. During that admission the patient had a fever and elevated pro-calcitonin. Right upper quadrant ultrasound was done which found a liver mass that was confirmed by CT and suspicious for cancer. Patient was to undergo MRI as outpatient which has not been done. Emergency department the patient was started on vancomycin and Zosyn. A small subcutaneous abscess was found around the site of an old IV and drained with reported pus. Chest x-ray was obtained and was negative and CT of the abdomen was also performed and official read is pending. Hospital Course 85-year-old male with a recent admission for TIA with subsequent finding of a hepatic mass pt was admitted with confusion, fever. Given episode of fever, infectious w/u was done, which showed strep Dysgalactiae in BCX, pt also note to have possible fever focus on Left AC, probable abscess believed to be from previous IV infiltrated. Abscess was drained in ED approrpriately. pt was empirically started on Ceftriaxone and clinically improved, became more alert and oriented. Given discrepancy of organism from blood and wound, pt underwent MATTI, which didn 't reveal vegetation. Pt finally received Oritavancin one dose given complicated IV, it was felt unsafe to d/c with PICC, [facility]x. Repeat blood culture obtained prior to d/c. Given patient's cirrhosis, HIDA scan and EGD obtained, which showed No scintigraphic evidence for acute cholecystitis or biliary ductal obstruction.Gr1 varices and portal hypternsive gastropathy, diffusely scarred, atrophy mucosa noted. pt remained asymptomatic at the time of d/c, deemed safe for d/c. Plan was to follow up with on 12/18. acute, active Rt arm, abscess in anterior cubital fossa, believed to be from previous IV infiltrated, abscess drained for culture in ED. US suggested more intramuscular lesion. no surgical intervention recommended per surgery team. wound culture grew MSSA, which is different from BCX. -continue abx as below strep Dysgalactiae in BCX, 05/04, diff organism from wound, unclear source, pt was started on vanc and zosyn; change zosyn to ceftriaxone, -continue cfx per ID, likely switch to PCN -appreciate ID input, recommended MATTI, possible pre EGD given cirrhosis, -discussed with and , awaits card/gi eval, -keep in NPO today for now mild hyponatremia-Lactic acid normal; etiology unclear at this time with mild hypochloremia -Na level remained stable, no neurologic findings, -s/p -Bolused 1L in ED, NS 100ml/hr, stop fluid today -Recheck am labs chronic, stable sepsis, +SIRS, Strep bacteremia, source likely Rt arm abscess, unlikely GI source given negative HIDA scan -sepsis resolved with abx, ivf, BP remained stable, pt remained afebrile. Hyperbilirubinemia and elevated LFT's with anemia and thrombocytopenia second to uncharacterized liver mass; present on admission; ongoing, Mass found on previous US and CT. HIDA scan revealed normal GB. -Anemia work-up completed a couple days ago and will not repeat -Pt to follow-up out patient for MRI with liver protocol. Type II diabetes; present on admission; ongoing -Last A1c was 7.5 -Home medication: Metformin and unknown insulin -Hold metformin -Lantus 10 units in the evening -Low-dose correctional with no prandial Hypertension; present on admission; ongoing -Continue amlodipine and losartan Hyperlipidemia-continue home statin Gout-continue allopurinol Disposition: pending, Exam Vital Signs (Last) Date Time Temp Pulse Resp B/P Pulse Ox O2 Delivery O2 Flow Rate FiO2 12/11/16 10:49 36.6 70 18 165/85 97 Room Air 12/11/16 10:10 0.00 Exam Patient was examined on the day of discharge Test 12/06/16 23:31 12/06/16 23:59 12/07/16 01:22 12/07/16 06:35 Troponin T 0.010ug/L (0.0-0.011) Pro-B-Type Natriuretic Peptide 890.5pg/mL (0-486) Lipase 54U/L (13-60) Lactic Acid Level 1.4mmol/L (0.4-2.0) Urine Color Callie (YELLOW) Urine Appearance Slightly cloudy Urine pH 5.5 (5.0-8.0) Urine Specific [place] 1.022 (1.003-1.035) Urine Protein 100mg/dL (NEG,TRACE) Urine Glucose (UA) Negativemg/dL (NEGATIVE) Urine Ketones Negativemg/dL (NEGATIVE) Urine Occult Blood Large (NEGATIVE) Urine Nitrite Negative (NEGATIVE) Urine Bilirubin Small (NEGATIVE) Urine Ictotest Positive (Negative) Urine Urobilinogen 4mg/dL (NORMAL) Urine Leukocyte Esterase Negative (NEGATIVE) Urine RBC 11-50/hpf (0-2) Urine WBC 0-5/hpf (0-5) Urine Epithelial Cells Occasional/hpf (NONE-MOD) Urine Crystals Amorphous urates (NONE Urine Bacteria Few/hpf (NONE-FEW) Urine Hyaline Casts None/lpf (NONE) Urine Granular Casts None seen (NONE SEEN) Urine Waxy Casts None seen (NONE SEEN) Urine Red Blood Cell Casts None seen (NONE SEEN) Urine White Blood Cell Casts None seen (NONE SEEN) Urine Mucus Present (None Seen) Urine Trichomonas None seen (NONE SEEN) Urine Yeast None (NONE SEEN) Urinalysis Comment Fine granular casts Urine Culture Reflexed Not indicated Ammonia 68ug/dL (18-53) Test 12/08/16 05:28 12/11/16 05:00 Phosphorus Level 2.7mg/dL (2.5-4.9) White Blood Count 3.8th/mm3 (3.8-10.1) Red Blood Count 3.51mil/mm3 (4.40-5.80) Hemoglobin 11.0g/dL (13.8-17.2) Hematocrit 32.4% (41.0-50.0) Mean Corpuscular Volume 92.3fL (81-100) Mean Corpuscular Hemoglobin 31.3pg (27.0-35.0) Mean Corpuscular Hemoglobin Concent 34.0% (32.0-37.0) Red Cell Distribution Width 15.5% (12.3-15.4) Platelet Count 209bil/L (150-400) Neutrophils (%) (Auto) 41.9% (40-74) Lymphocytes (%) (Auto) 32.5% (14-46) Monocytes (%) (Auto) 21.2% (4-12) Eosinophils (%) (Auto) 1.0% (0-5) Basophils (%) (Auto) 0.8% (0-3) Sodium Level 137mEq/L (134-144) Potassium Level 4.0mEq/L (3.5-5.2) Chloride Level 99mEq/L (97-108) Carbon Dioxide Level 20mmol/L (18-29) Blood Urea Nitrogen 17mg/dL (8-27) Creatinine 1.00mg/dL (0.76-1.27) Estimat Glomerular Filtration Rate 75mL/min (>59) Glucose Level 177mg/dL (60-99) Calcium Level 9.0mg/dL (8.5-10.1) Magnesium Level 2.0mg/dL (1.6-2.6) Total Bilirubin 0.8mg/dL (0.0-1.2) Aspartate Amino Transf (AST/SGOT) 42U/L (0-50) Alanine Aminotransferase (ALT/SGPT) 35U/L (0-44) Alkaline Phosphatase 404U/L (25-160) Total Protein 7.2g/dL (6.4-8.4) Albumin 3.5g/dL (3.4-5.0) Procalcitonin 0.35ng/mL (0.00-0.08) Discharge Medications Discharge Medications Allopurinol (Allopurinol) 100 Mg Tablet 100 MG PO QAM (Reported) Amlodipine (Amlodipine) 10 Mg Tablet 10 MG PO QAM (Reported) Aspirin Chew (Aspirin Chew) 81 Mg Chew 81 MG PO QAM (Reported) Clopidogrel (Clopidogrel) 75 Mg Tablet 75 MG PO DAILY Prescribed by: DONNIE PUENTE MD Glipizide (Glipizide) 5 Mg Tablet 10 MG PO BIDAC (Reported) Ibuprofen (Ibuprofen) 200 Mg Capsule 600 MG PO QAM (Reported) Insulin Glargine,Hum.rec.anlog (Toujeo Solostar) 300 Unit/Ml (1.5 Ml) Insuln.pen 15 UNIT SQ DAILY (Reported) Losartan Potassium (Losartan Potassium) 100 Mg Tablet 100 MG PO QAM (Reported) Metformin (Glucophage) 1,000 Mg Tablet 1,000 MG PO BIDWM (Reported) Simvastatin (Simvastatin) 40 Mg Tablet 40 MG PO HS (Reported) Tamsulosin (Flomax) 0.4 Mg Capsule 0.8 MG PO HS (Reported) As needed Temazepam (Temazepam) 15 Mg Capsule 15 MG PO HS PRN PRN For Insomnia (Reported) Followup Plan Disposition: home Discharge Diet: Heart Healthy Discharge Activity: No restrictions Patient Instructions You were hospitalized with confusion, fever, likely due to bacterial infection in your blood. Your condition greatly improved with iv antibiotics. You underwent intervention to see the source of infection, which didn't reveal any persistent infection. Please note that your infection is cleared up, please return to hospital if you notice any fever, chills, confusion again. Please follow up with in 1-2weeks as scheduled Follow-up Provider: Willem Daniels MD Follow-up with PCP in: 2 weeks Time spent 65min Dionne James MD Dec 11, 2016 13:22
--- NOTE | 2016-12-11 15:08 | NUR ---
Discharge Pt discharged at this time, all belongings gathered and returned to pt. VSS, no complains of fever, chills, confusion or increased pain. No new scripts given, Discharge packet printed and reviewed with pt and family. Pt awaiting completion of IV abx prior to discharge.
[2016-12-11] MEDS ORDERED: Dexamethasone 4 mg/mL Inj ONE (15:40)
[2016-12-11] MEDS ORDERED: Propofol 10,000 mCg/mL 20 mL Inj ONE (15:40)
--- NOTE | 2016-12-12 11:34 | PATH ---
SURGICAL PATHOLOGY Attending Physician:Jimi Galdamez M.D. CASE STATUS: Signed Out PATIENT NAME: EVELYN SUTHERLAND PID: [id number] : 1930 DATE COLLECTED:12/10/2016 00:00 SPECIMEN: Gastric, Biopsy CLINICAL HISTORY: GASTRITIS 1). GASTRIC BIOPSY FINAL DIAGNOSIS: Stomach, Biopsy: Antral mucosa with chronic gastritis and intestinal metaplasia. Negative for dysplasia and malignancy. Immunohistochemistry for Helicobacter organisms pending with the results to be reported in an addendum. ICD10: K29.7 GROSS DESCRIPTION: The specimen is received in one formalin filled container labeled with the patient's name, sublabeled "gastric" and consists of an extremely tiny less then 0.1 CM portion of tissue which is entirely submitted in one cassette. 12/11/2016GA ICD-9 CODES: CPT CODES: 1: 90677, 71800 PROCEDURE/ADDENDA: Addendum SPI Addendum Diagnosis Stomach, Antrum, Biopsy: Immunohistochemistry negative for Helicobacter organisms. Addendum Comment The purpose of this addendum is to report the result of the immunohistochemical stain performed to evaluate for Helicobacter organisms. The immunohistochemical stain is negative, whereas the positive control reacted appropriately. Electronically Signed Out Hiram Sutherland MD, PhD Electronically Signed Out Hiram Sutherland MD, PhD [facility] [address], [place] [address] Technical component performed at [facility], [address] [place] [address] [address], [place], [address]
== END 2016-12-11 15:41 | disposition home or self-care (01) | DRG 871 ==
LOC: EDBD 23:14 → EDUNIT# 23:14 → SED 23:30 → MPC 12-07 02:47
PROVIDERS: ADMIT Hospitalist; ATTEND Hospitalist
PROC: 0J9G0ZX Drainage of Right Lower Arm Subcutaneous Tissue and Fascia, Open Approach, Diagnostic (ICD-10-PCS; principal; 2016-12-06)
PROC: 0DJ08ZZ Inspection of Upper Intestinal Tract, Via Natural or Artificial Opening Endoscopic (ICD-10-PCS; 2016-12-10)
PROC: B246ZZ4 Ultrasonography of Right and Left Heart, Transesophageal (ICD-10-PCS; 2016-12-11)
DX: A41.81 Sepsis due to Enterococcus (principal); G93.40 Encephalopathy, unspecified; E87.2 Acidosis; E87.1 Hypo-osmolality and hyponatremia; I85.10 Secondary esophageal varices without bleeding; L02.413 Cutaneous abscess of right upper limb; T82.7XXA Infection and inflammatory reaction due to other cardiac and vascular devices, implants and grafts, initial encounter; K76.6 Portal hypertension; K70.30 Alcoholic cirrhosis of liver without ascites; B95.61 Methicillin susceptible Staphylococcus aureus infection as the cause of diseases classified elsewhere; K31.89 Other diseases of stomach and duodenum; I10 Essential (primary) hypertension; E11.9 Type 2 diabetes mellitus without complications; Z79.4 Long term (current) use of insulin; E78.5 Hyperlipidemia, unspecified